=== PATIENT | female | born 1960 | race Caucasian/White ===

== ENCOUNTER 2016-11-22 23:20 | Inpatient (IN) ==
--- NOTE | 2016-11-23 00:27 | Emergency Department Note ---
Guilherme Zeng Brittany, am scribing for, and in the presence of, Adrienne Mace DO 00: 09. IRodri Debra, DO, personally performed the services described in this documentation, ascribed by Shirlene Vanegas in my presence, and it is both accurate and complete . Arrival - Arrival Chief Complaint: Chest Pain Stated Complaint: b/p up hr up chest pain ED Nursing Triage Note: pt to triage with c/o increased bp of 149/117, hr of 112 and onset of chest pain and nausea. pt states pain radiates to left shoulder. Mode of Arrival: Ambulatory Limitations: No Limitations Source: Patient - History of Present Illness HPI Narrative: This is s 56 y/o white female,who presents to the ED with c/o chest pain which started at 1999 last night. She localizes the chest pain to the left upper chest area and describes the pain as a sharp stabbing type of pain. She denies a cough but notes nausea and vomiting. She states she took some Benadryl before coming to the ED. Pt has no other complaints/pain in the ED at this time. Pt has a PMHx of HTN and [place]. Pt has had a cardiac cath. Pt denies a family medical Hx. Pt denies a social Hx. Onset (ago): hour(s) (Started at 1999) Consistency: constant Severity: moderate Quality: stabbing, sharp Date of Last Menstrual Period: hyst Allergies/Adverse Reactions: Allergies Allergy/AdvReac Type Severity Reaction Status Date / Time nitroglycerin AdvReac Intermediate HIVES Verified 11/23/16 01:21 Review of System - Review of System 12 point system: reviewed and no additional remarkable complaints except as stated - Review of System Respiratory: Absent: cough Cardiovascular: Present: chest pain (Left sided chest pain ) Gastrointestinal: Present: nausea, vomiting Medical,Surgical,& Family Hx - Medical History Cardio: History of: Hypertension, [place] (3yrs ago) - Surgical History Cardiac Surgeries: Sugical HX of: Cardiac Catheterization - Social History Smoking Status: Never smoker Frequency of Alcohol Use: None Type of Drug Use: None Exam Vital Signs: Vital Signs Temperature 97.8 F 11/22/16 23:25 Pulse Rate 119 H 11/22/16 23:25 Respiratory Rate 18 11/22/16 23:25 Blood Pressure 156/113 11/22/16 23:25 O2 Sat by Pulse Oximetry 99 11/22/16 23:25 - General General appearance: alert, in no apparent distress - Head Head exam: Present: atraumatic, normocephalic, normal inspection - Eye Eye exam: Present: EOMI, other (Pupils are dilated ) - ENT ENT exam: Present: mucous membranes moist - Neck Neck exam: Present: full ROM, trachea midline. Absent: tenderness - Chest Chest inspection: Present: symmetric chest wall rise. Absent: tenderness - Respiratory Respiratory exam: Present: normal lung sounds bilaterally. Absent: respiratory distress - Cardiovascular Cardiovascular exam: Present: regular rate, normal rhythm, normal heart sounds. Absent: murmur, rubs, gallop, clicks, JVD - Abdominal Exam Abdominal exam: Present: soft, normal bowel sounds. Absent: tenderness - Rectal Exam Rectal exam: Present: deferred - Extremities Exam Extremities exam: Present: normal capillary refill. Absent: tenderness, pedal edema - Back Exam Back exam: Present: full ROM. Absent: tenderness, muscle spasm, rashes - Neurological Exam Neurological exam: Present: alert, oriented X3, CN II-XII intact. Absent: motor sensory deficit - Psychiatric Psychiatric exam: Present: normal affect, normal mood. Absent: depressed, agitated, anxious, flat affect - Skin Skin exam: Present: warm, dry, intact, normal color. Absent: rash, cyanosis, diaphoresis Course Course Narrative: spoke with hospitalist who will admit pt for observation for cp. pt is stable at this time Results - Labs CBC & BMP: 11/23/16 00:21 11/23/16 00:21 Lab Results: I have reviewed the patients labs - EKG EKG results: interpreted by AUSTYN, sinus rhythm EKG shows: tachycardia - Diagnostic Findings Procedure: Chest x-ray: image reviewed by me (no acute path) Disposition Clinical Impression: Chest pain, HTN (hypertension) Case discussed with: patient, patient's family Disposition: Still a Patient Condition: Stable Time of Disposition: 01:23
[2016-11-23] MEDS ORDERED: NITROGLYCERIN SL 0.4 MG TABLET SL STA (00:41)
[2016-11-23] MEDS ORDERED: ASPIRIN 325 MG TABLET PO STA (00:41)
[2016-11-23 00:48] LABS: Basophils % 0.3 % (0.0-0.8); Eosinophils # 0.2 10*3/uL (0.0-0.87); Eosinophils % 2.3 % (0.00-10.9); Hematocrit 39.7 VOL% (35.7-47.0); Hemoglobin 13.8 GM/DL (12.0-16.0); Immature Granulocytes % 0.3 %; Immature Granulocytes Absolute 0.02 #; Lymphocytes # 1.8 10*3/uL (1.4-4.0); Lymphocytes % 26.9 % (21.3-54.2); Mean Corpuscular HGB Conc 34.8 GM/DL (32-36); Mean Corpuscular Hemoglobin 31 PG (27-34); Mean Platelet Volume 11.6 FL (9.6-12.0); Monocytes # 0.5 10*3/uL (0.11-0.8); Monocytes % 7.9 % (1.7-12.7); Neutrophils # 4.1 10*3/uL (1.4-7.4); Neutrophils % 62.3 % (38.7-73.9); Platelet Count 188 T/CUMM (130-400); Red Blood Count 4.46 MC/CUMM (3.8-5.5); Red Cell Distribution Width 12.7 % (9.3-17.3); White Blood Count 6.6 T/CUMM (4-12)
[2016-11-23] MEDS ORDERED: NITROGLYCERIN SL 0.4 MG TABLET SL ONE (00:53)
[2016-11-23] MEDS ORDERED: ASPIRIN 325 MG TABLET ONE (00:53)
[2016-11-23 01:02] LABS: INR 0.9; PT Patient Result 9.7 SECS; Partial Thromboplastin Time 25.3 SECS (0-40)
[2016-11-23] MEDS ORDERED: ONDANSETRON 4 MG/2 ML VIAL IV STA (01:03)
[2016-11-23] MEDS ORDERED: MORPHINE 2 MG/1 ML SYRINGE IV STA (01:03)
[2016-11-23] MEDS ORDERED: MORPHINE 2 MG/1 ML SYRINGE ONE (01:04)
[2016-11-23] MEDS ORDERED: ONDANSETRON 4 MG/2 ML VIAL ONE (01:04)
[2016-11-23 01:08] LABS: Alanine Aminotransferase 11 U/L (13-56); Albumin 3.4 G/DL (3.4-5.0); Alkaline Phosphatase 106 U/L (45-117); Aspartate Amino Transferase 12 U/L (0-37); Bilirubin,Total < 0.39 MG/DL (0.2-1.0); Blood Urea Nitrogen 10 MG/DL (7-18); Calcium 9.3 MG/DL (8.5-10.1); Glucose 91 MG/DL (74-106); Osmolality,Calculated 281.1 MOS/KG (273-304); Potassium 3.8 MMOL/L (3.5-5.1); Sodium 142 MMOL/L (136-145); Total Protein 6.9 G/DL (6.4-8.3); Troponin I Only < 0.015 NG/ML (0.00-0.045)
[2016-11-23] MEDS ORDERED: METOPROLOL TARTRATE 5 MG/5 ML VIAL IV STA (01:18)
[2016-11-23] MEDS ORDERED: ENOXAPARIN 60 MG/0.6 ML SYRINGE SUBCUT STA (01:23)
[2016-11-23] MEDS ORDERED: ENOXAPARIN 60 MG/0.6 ML SYRINGE ONE (01:31)
[2016-11-23] MEDS ORDERED: METOPROLOL TARTRATE 5 MG/5 ML VIAL IV ONE (01:31)
--- NOTE | 2016-11-23 01:58 | Hospitalist History & Physical ---
Assessment and Plan - Time spent with patient Time spent with patient: Less than 30 minutes (1) Chest pain Status: Acute Assessment and plan: Monitored bed Serial EKGs and troponins Lipid panel pending ASA daily Patient is allergic to NTG (causes itching) Cardiology consultation Current Visit: Yes (2) HTN (hypertension) Status: Chronic Assessment and plan: Unsure of patient is compliant with home medication regimen Will start Lisinopril and Metoprolol daily as this is part of her daily regimen Current Visit: Yes (3) Anxiety Status: Chronic Current Visit: Yes History of Present Illness Chief complaint: chest pain History of present illness: Called to the ER for Ms. Dorman who is a 56 year old female that presents tonight with increased blood pressure and increased heart rate over the course of today. Patient said the highest BP recorded was 149/120 and the highest HR recorded was 135. She vomited three times this afternoon and then began having left sided chest pain while lying in the bed at 2000 tonight. Patient describes the pain as sharp that radiates to left neck and face with shortness of breath and diaphoresis. She denies any alleviating or aggravating factors. While in the ER, she received a complete cardiac workup that was negative. She received Lovenox 60mg subq, Metoprolol Tartrate 5mg, NTG 0.4mL SL, ASA 325mg, Morphine 2mg IV, and Zofran 4mg IV. She denies chest pain or shortness of breath at this time. Patient's history includes LA in 2013, HTN, anxiety, depression, hysterectomy, and breast reduction. Her digital service engineer was Dr. Nolan but she has not seen him since last year. Last cath was in 2013 along with a stress test and echo. She states she has been compliant with her home medication regimen and denies alcohol or drug use. She does not have a PCP due to her last PCP recently retired. She will be admitted under hospital medicine service to a monitored bed with serial EKGs and troponins, and cardiology consultation. Home medications will be reconciled once confirm. Patient is a full code. Home Medications Medication Instructions Recorded Confirmed Type Aspirin 81 mg PO DAILY 11/23/16 11/23/16 History LORazepam [Lorazepam] 0.5 mg PO TID 11/23/16 11/23/16 History Lisinopril 2.5 mg PO DAILY 11/23/16 11/23/16 History Metoprolol Succinate Xl [Toprol Xl] 50 mg PO DAILY 11/23/16 11/23/16 History Potassium Chloride 10 meq PO DAILY 11/23/16 11/23/16 History cloNIDine HCl [Clonidine HCl] 11/23/16 History Allergies Allergy/AdvReac Type Severity Reaction Status Date / Time pregabalin [From Lyrica] Allergy Intermediate ITCHING Verified 11/23/16 01:25 nitroglycerin AdvReac Intermediate HIVES Verified 11/23/16 01:21 promethazine [From Phenergan] AdvReac Intermediate Hallucinati Verified 01:25 ng Sulfa (Sulfonamide AdvReac Intermediate Vomiting Verified 11/23/16 01:25 Antibiotics) Medical,Surgical,& Family Hx - Medical History Cardio: History of: Hypertension, [place] (3yrs ago) No history of: CHF Psychological: History of: Anxiety Disorders, Depression Neurology: No history of: Cerebrovascular Accident, TIA HEENT: No history of: HEENT Problems Endocrine: No history of: Endocrine Problems Respiratory: No history of: Respiratory Problems Renal: No history of: Renal Problems Genitourinary: No history of: Problems Gastrointestinal: No history of: GI Problems Musculoskeletal: No history of: Musculoskeletal Problems Hematology: No history of: Blood Disorders Reproductive: No history of: Reproductive Problems - Surgical History Cardiac Surgeries: Sugical HX of: Cardiac Catheterization Reproductive Surgeries: Surgical HX of;: Breast Surgery (breast reduction), Hysterectomy - Family History Family History: Reports;: Family Heart Disease (mother, father), Family Stroke ( father), Additional Family History (mother-alzheimers; brother-kidney disease) - Social History Smoking Status: Never smoker Frequency of Alcohol Use: None Type of Drug Use: None Marital Status: Lives With:: Spouse Functional capacity: independent ambulation - Constitutional Constitutional: Absent: chills, fatigue, fever(s), weakness - EENT Eyes: Absent: blurry vision Ears: Absent: decreased hearing Nose, mouth and throat: Absent: dysphagia, epistaxis, headache(s), throat swelling - Cardiovascular Cardiovascular: Present: chest pain at rest, diaphoresis, dyspnea, radiating jaw , neck or arm pain. Absent: chest pain with activity, edema, lightheadedness, palpitations - Respiratory Respiratory: Present: dyspnea. Absent: cough - Gastrointestinal Gastrointestinal: Present: nausea, vomiting. Absent: abdominal pain, constipation, diarrhea - Genitourinary Genitourinary: Absent: difficulty urinating, dysuria - Musculoskeletal Musculoskeletal: Absent: arthralgias, back pain - Neurological Neurological: Absent: abnormal gait, confusion, frequent falls - Psychiatric Psychiatric: Present: anxiety, depression - Endocrine Endocrine: Absent: cold intolerance, heat intolerance - Hematologic/Lymphatic Hematologic/Lymphatic: Absent: easy bleeding, easy bruising Exam - Constitutional Vitals: Period Temp Pulse Resp BP Sys/Michael Pulse Ox Last 24 Hr 97.8 F-97.8 F 119-119 18-22 156-156/113-113 99 General appearance: normal weight, no acute distress - Head Head exam: Present: normal inspection, normocephalic - Eye Eye exam: Present: EOMI Pupils: Present: AMERICO, normal accommodation - ENT ENT exam: Present: normal exam - Neck Neck exam: Present: normal inspection - Respiratory Respiratory exam: Present: other (Coarse bilaterally. Respirations even and non- labored with symmetrical rise and fall of chest noted. ) - Cardiovascular Cardiovascular exam: Present: regular rate and rhythm. Absent: diastolic murmur , systolic murmur - GI/Abdominal GI/Abdominal exam: Present: normal bowel sounds, soft. Absent: firm, tenderness - Extremities Exam Extremities exam: Present: normal inspection, normal capillary refill, full ROM. Absent: edema - Back Exam Back exam: Present: normal inspection - Neurological Exam Neurological exam: Present: alert, oriented X3 (Answers all questions appropriately. Makes good eye contact. ) - Psychiatric Psychiatric exam: Present: normal affect, normal mood - Skin Skin exam: Present: normal color, warm, dry, intact Results - Labs CBC & BMP: 11/23/16 00:21 11/23/16 00:21 Lab Results: I have reviewed the past 24 hour labs - EKG EKG results: interpreted by AUSTYN
[2016-11-23] MEDS ORDERED: DOCUSATE SODIUM 100 MG CAPSULE PO PRN (02:40)
[2016-11-23] MEDS: SODIUM CHLORIDE 0.9% 1,000 ML IV SCH ×3 (03:02→17:53)
[2016-11-23 03:38] LABS: Barbiturates Screen,Urine Negative (Negative); Benzodiazepines Screen,Urine Negative (Negative); Cannabinoid Screen,Urine Negative (Negative); Opiate Screen,Urine Positive (Negative); Phencyclidine Screen,Urine Negative (Negative)
[2016-11-23] MEDS: MORPHINE 2 MG/1 ML SYRINGE IV PRN ×4 (04:29→21:29)
[2016-11-23] MEDS: ONDANSETRON 4 MG/2 ML VIAL IV PRN (04:31)
[2016-11-23 05:12] LABS: Free T4 (Free Thyroxine) 0.87 NG/DL (0.76-1.46); Thyroid Stimulating Hormone 3.99 uIU/ml (0.358-3.74)
[2016-11-23 05:23] LABS: Risk Ratio 3.21; VLDL CHOLESTEROL 23.6 MG/DL
--- NOTE | 2016-11-23 08:01 | Order Completion Report ---
See report scanned to EMR
--- NOTE | 2016-11-23 08:04 | XRay Report ---
Portable chest Indication: Chest pain Comparison: Not available Findings: Cardiomediastinal contours are normal. Lungs are clear bilaterally. No acute osseous abnormalities. Visualized upper abdomen demonstrates no acute pathology. Impression: Normal chest PROCEDURE INTERPRETED AT [facility] DEPARTMENT OF RADIOLOGY Final Report Signed by: Favian Pearce MD
[2016-11-23] MEDS ORDERED: LISINOPRIL 20 MG TABLET PO SCH (09:00)
[2016-11-23] MEDS ORDERED: METOPROLOL SUCCINATE XL 50 MG TABLET PO SCH (09:00)
[2016-11-23] MEDS: ALPRAZolam 0.25 MG TABLET PO SCH ×2 (09:44→21:29)
[2016-11-23] MEDS: ASPIRIN EC 81 MG TABLET PO SCH (09:45)
[2016-11-23] MEDS: PANTOPRAZOLE 40 MG TABLET PO SCH (09:45)
--- NOTE | 2016-11-23 14:41 | Order Completion Report ---
See report scanned to EMR
--- NOTE | 2016-11-23 14:41 | Order Completion Report ---
See report scanned to EMR
--- NOTE | 2016-11-23 16:40 | Cardiology Consult Note ---
Assessment and Plan (1) Chest pain Status: Acute Current Visit: Yes (2) HTN (hypertension) Status: Chronic Current Visit: Yes (3) Anxiety Status: Chronic Current Visit: Yes History of Present Illness - Data of Consult Patient: new to practice Consult date: 11/23/16 Requesting Physician: Daniel Pineda - Consult Narrative Reason for consult: Hypertension, chest pain History of present illness: Associate Java Developer: Dr. Nolan, she is requesting to switch to Nathan The patient is a 56-year-old white female with a history of "stress-induced" heart attack (apparently no obstructive coronary artery disease) in 2010, hypertension. She presented with complaints of hypertension, tachycardia and chest discomfort associated with the symptoms. Apparently her blood pressure has never been well controlled. She gets hypertensive spikes and tries to take additional medications as needed. Yesterday she had 1 of these spikes, this time associated with significant tachycardia (130s). When this occurred she also experienced some chest discomfort that radiated into her left neck and left arm. This is described as a pressure. There are no other identifiable triggers or alleviators. In general she had not been experiencing any exertional chest discomfort, change in exercise tolerance, paroxysmal nocturnal dyspnea, orthopnea or lower extremity edema. She tells me she has been on a number of different medications but does not necessarily recall having an adverse event from any particular antihypertensive medication. She has not had any recent orthopnea, paroxysmal nocturnal dyspnea, lower extremity edema. She denies any other recent acute illness. She denies recreational drug use, over- the-counter supplements, energy drinks, recent steroid shots or injections. She is not using any cold medications. She denies excessive caffeine consumption. She does not smoke. Impression and plan: -Hypertension: I believe her clonidine regimen is contributing to the yo-yo effect of her hypertension. I am going to try to wean this off of her and give her more long-acting medications. We will optimize her ROSALINDA inhibitor, add Norvasc and decrease the clonidine to try to wean it. I am going to check 24- hour urine metanephrines because of the associated tachycardia. -Chest pain: We will check bilateral arm pressure. I believe this is symptomatic hypertension. We will reevaluate her symptoms once her blood pressure is controlled. We will continue to cycle her cardiac biomarkers. Check an echocardiogram. CC: Móniac Otuseso, MD - Home Medications and Allergies Home Medications: Home Medications Medication Instructions Recorded Confirmed Type Aspirin 81 mg PO DAILY 11/23/16 11/23/16 History LORazepam [Lorazepam] 0.5 mg PO TID PRN 11/23/16 11/23/16 History Lisinopril 2.5 mg PO DAILY 11/23/16 11/23/16 History Metoprolol Succinate Xl [Toprol Xl] 50 mg PO BID 11/23/16 11/23/16 History Potassium Chloride 10 meq PO DAILY 11/23/16 11/23/16 History cloNIDine HCl [Clonidine HCl] 0.2 mg PO BID 11/23/16 11/23/16 History Allergies/Adverse Reactions: Allergies Allergy/AdvReac Type Severity Reaction Status Date / Time pregabalin [From Lyrica] Allergy Intermediate ITCHING Verified 11/23/16 01:25 nitroglycerin AdvReac Intermediate HIVES Verified 11/23/16 01:21 promethazine [From Phenergan] AdvReac Intermediate Hallucinati Verified 01:25 ng Sulfa (Sulfonamide AdvReac Intermediate Vomiting Verified 11/23/16 01:25 Antibiotics) 12 point system: reviewed and no additional remarkable complaints except as stated Medical,Surgical,& Family Hx - Medical History Cardio: History of: Hypertension, [place] (3yrs ago) No history of: CHF Psychological: History of: Anxiety Disorders, Depression Neurology: No history of: Cerebrovascular Accident, TIA HEENT: No history of: HEENT Problems Endocrine: No history of: Endocrine Problems Respiratory: No history of: Respiratory Problems Renal: No history of: Renal Problems Genitourinary: No history of: Problems Gastrointestinal: No history of: GI Problems Musculoskeletal: No history of: Musculoskeletal Problems Hematology: No history of: Blood Disorders Reproductive: No history of: Reproductive Problems - Surgical History Cardiac Surgeries: Sugical HX of: Cardiac Catheterization Reproductive Surgeries: Surgical HX of;: Breast Surgery (breast reduction), Hysterectomy - Family History Family History: Reports;: Family Heart Disease (mother, father), Family Stroke ( father), Additional Family History (mother-alzheimers; brother-kidney disease) - Social History Smoking Status: Never smoker Frequency of Alcohol Use: None Type of Drug Use: None Marital Status: Lives With:: Spouse Functional capacity: independent ambulation Physical Examination Vital Signs Temp Pulse Resp BP Pulse Ox 97.8 F 119 H 18 156/113 99 11/22/16 23:25 11/22/16 23:25 11/22/16 23:25 11/22/16 23:25 11/22/16 23:25 Exam: General appearance: normal weight, no acute distress - Head Head exam: Present: normal inspection, normocephalic, atraumatic. Absent: hematoma, laceration - Eye Eye exam: Present: EOMI. Absent: conjunctival injection, nystagmus, periorbital swelling, scleral icterus, laceration to eyelids Pupils: Present: PERRL. Absent: constricted, dilated, fixed, irregular, unequal - ENT ENT exam: Present: normal exam, normal external ear exam - Neck Neck exam: Present: normal inspection. Absent: lymphadenopathy, meningismus, tenderness, thyromegaly - Respiratory Respiratory exam: Present: clear to auscultation bilaterally. Absent: accessory muscle use, chest wall tenderness - Cardiovascular Cardiovascular exam: Present: regular rate and rhythm. Absent: carotid bruit, gallop, JVD, rubs - GI/Abdominal GI/Abdominal exam: Present: normal bowel sounds, soft. Absent: distended, firm , guarding, hernia, mass, tenderness, rebound. - Extremities Exam Extremities exam: Present: normal inspection, normal capillary refill. Absent: calf tenderness, edema - Back Exam Back exam: Present: normal inspection. Absent: muscle spasm, vertebral tenderness - Neurological Exam Neurological exam: Present: alert, oriented X3, grossly intact without resting or intention tremor - Psychiatric Psychiatric exam: Present: normal affect, normal mood - Skin Skin exam: Present: normal color, warm, dry, intact. Absent: cyanosis, diaphoretic, rash, urticaria Result/EKG - Labs CBC & BMP: 11/23/16 00:21 11/23/16 00:21 Lab Results: I have reviewed the past 24 hour labs Labs: Laboratory Results - last 24 hr 11/23/16 11/23/16 11/23/16 00:21 00:21 00:21 WBC 6.6 RBC 4.46 Hgb 13.8 Hct 39.7 MCV 89.0 MCH 31 MCHC 34.8 RDW 12.7 Plt Count 188 MPV 11.6 Neut % (Auto) 62.3 Lymph % (Auto) 26.9 [place] % (Auto) 7.9 Eos % (Auto) 2.3 Baso % (Auto) 0.3 Neut # (Auto) 4.1 Lymph # (Auto) 1.8 [place] # (Auto) 0.5 Eos # (Auto) 0.2 Baso # (Auto) 0.0 Immature Gran % 0.3 Nucleated RBC % 0.0 Immature Gran # 0.02 Nucleated RBCs # 0.00 Immature Plt Fraction 0.0 INR 0.9 PT Patient/Control Mix 9.7 D-Dimer, Quantitative Circ Anticoag PTT 25.3 Sodium 142 Potassium 3.8 Chloride 106 Carbon Dioxide 30 Anion Gap 9.8 BUN 10 Creatinine 1.10 H GFR Calculation 56 BUN/Creatinine Ratio 9.00 Glucose 91 Calculated Osmolality 281.1 Calcium 9.3 Total Bilirubin < 0.39 AST 12 ALT 11 L Alkaline Phosphatase 106 Total Creatine Kinase 42 CK-MB (CK-2) < 1.0 Troponin I < 0.015 Total Protein 6.9 Albumin 3.4 Globulin 3.5 Albumin/Globulin Ratio 0.9 L Triglycerides Cholesterol LDL Cholesterol VLDL Cholesterol HDL Cholesterol Heart Disease Risk Ratio Free T4 TSH 3rd Generation Urine Opiates Screen Ur Barbiturates Screen Ur Phencyclidine Scrn U Amphetamine/Methamph U Benzodiazepines Scrn U Cocaine Metab Screen U Cannabinoids Screen 11/23/16 11/23/16 11/23/16 00:21 02:55 03:13 WBC RBC Hgb Hct MCV MCH MCHC RDW Plt Count MPV Neut % (Auto) Lymph % (Auto) [place] % (Auto) Eos % (Auto) Baso % (Auto) Neut # (Auto) Lymph # (Auto) [place] # (Auto) Eos # (Auto) Baso # (Auto) Immature Gran % Nucleated RBC % Immature Gran # Nucleated RBCs # Immature Plt Fraction INR PT Patient/Control Mix D-Dimer, Quantitative <= 0.5 Circ Anticoag PTT Sodium Potassium Chloride Carbon Dioxide Anion Gap BUN Creatinine GFR Calculation BUN/Creatinine Ratio Glucose Calculated Osmolality Calcium Total Bilirubin AST ALT Alkaline Phosphatase Total Creatine Kinase CK-MB (CK-2) Troponin I Total Protein Albumin Globulin Albumin/Globulin Ratio Triglycerides Cholesterol LDL Cholesterol VLDL Cholesterol HDL Cholesterol Heart Disease Risk Ratio Free T4 0.87 TSH 3rd Generation 3.990 H Urine Opiates Screen Positive H Ur Barbiturates Screen Negative Ur Phencyclidine Scrn Negative U Amphetamine/Methamph Negative U Benzodiazepines Scrn Negative U Cocaine Metab Screen Negative U Cannabinoids Screen Negative 11/23/16 11/23/16 11/23/16 03:13 03:13 08:43 WBC RBC Hgb Hct MCV MCH MCHC RDW Plt Count MPV Neut % (Auto) Lymph % (Auto) [place] % (Auto) Eos % (Auto) Baso % (Auto) Neut # (Auto) Lymph # (Auto) [place] # (Auto) Eos # (Auto) Baso # (Auto) Immature Gran % Nucleated RBC % Immature Gran # Nucleated RBCs # Immature Plt Fraction INR PT Patient/Control Mix D-Dimer, Quantitative Circ Anticoag PTT Sodium Potassium Chloride Carbon Dioxide Anion Gap BUN Creatinine GFR Calculation BUN/Creatinine Ratio Glucose Calculated Osmolality Calcium Total Bilirubin AST ALT Alkaline Phosphatase Total Creatine Kinase CK-MB (CK-2) Troponin I < 0.015 < 0.015 Total Protein Albumin Globulin Albumin/Globulin Ratio Triglycerides 118 Cholesterol 212 H LDL Cholesterol 131.0 VLDL Cholesterol 23.6 HDL Cholesterol 66 H Heart Disease Risk Ratio 3.21 Free T4 TSH 3rd Generation Urine Opiates Screen Ur Barbiturates Screen Ur Phencyclidine Scrn U Amphetamine/Methamph U Benzodiazepines Scrn U Cocaine Metab Screen U Cannabinoids Screen - Diagnostic Findings Procedure: Chest x-ray: report reviewed by me - EKG EKG results: interpreted by me, sinus rhythm, no acute changes
--- NOTE | 2016-11-23 16:56 | Order Completion Report ---
See report scanned to EMR
[2016-11-23] MEDS: ENOXAPARIN 40 MG/0.4 ML SYRINGE SUBCUT SCH (21:29)
[2016-11-23] MEDS: LISINOPRIL 20 MG TABLET PO SCH (21:29)
[2016-11-23] MEDS: METOPROLOL SUCCINATE XL 50 MG TABLET PO SCH (21:35)
[2016-11-24] MEDS: SODIUM CHLORIDE 0.9% 1,000 ML IV SCH ×5 (01:55→22:34)
[2016-11-24] MEDS: ASPIRIN EC 81 MG TABLET PO SCH (08:26)
[2016-11-24] MEDS: amLODIPine 5 MG TABLET PO SCH (08:26)
[2016-11-24] MEDS: cloNIDine 0.1 MG TABLET PO SCH ×2 (08:27→14:45)
[2016-11-24] MEDS: METOPROLOL SUCCINATE XL 50 MG TABLET PO SCH (08:27)
[2016-11-24] MEDS: LISINOPRIL 20 MG TABLET PO SCH ×2 (08:27→20:50)
[2016-11-24] MEDS: ALPRAZolam 0.25 MG TABLET PO SCH ×2 (08:27→20:51)
[2016-11-24] MEDS: PANTOPRAZOLE 40 MG TABLET PO SCH (08:27)
--- NOTE | 2016-11-24 09:32 | Order Completion Report ---
See report scanned to EMR
[2016-11-24 10:19] LABS: Troponin I Only < 0.015 NG/ML (0.00-0.045)
[2016-11-24 10:35] LABS: Basophils % 0.3 % (0.0-0.8); Eosinophils # 0.2 10*3/uL (0.0-0.87); Eosinophils % 3.5 % (0.00-10.9); Hematocrit 40.1 VOL% (35.7-47.0); Hemoglobin 13.3 GM/DL (12.0-16.0); Immature Granulocytes % 0.3 %; Immature Granulocytes Absolute 0.02 #; Lymphocytes # 1.3 10*3/uL (1.4-4.0); Lymphocytes % 21.1 % (21.3-54.2); Mean Corpuscular HGB Conc 33.2 GM/DL (32-36); Mean Corpuscular Hemoglobin 31 PG (27-34); Mean Corpuscular Volume 92.6 FL (87-102); Mean Platelet Volume 11.8 FL (9.6-12.0); Monocytes # 0.3 10*3/uL (0.11-0.8); Monocytes % 5.2 % (1.7-12.7); Neutrophils # 4.3 10*3/uL (1.4-7.4); Neutrophils % 69.6 % (38.7-73.9); Platelet Count 185 T/CUMM (130-400); Red Blood Count 4.33 MC/CUMM (3.8-5.5); Red Cell Distribution Width 13.1 % (9.3-17.3); White Blood Count 6.2 T/CUMM (4-12)
[2016-11-24 10:39] LABS: Calcium 8.3 MG/DL (8.5-10.1); Magnesium 2.4 MG/DL (1.8-2.4); Osmolality,Calculated 278.3 MOS/KG (273-304); Potassium 4.7 MMOL/L (3.5-5.1)
--- NOTE | 2016-11-24 11:34 | Hospitalist Progress Note ---
Assessment and Plan (1) Chest pain Status: Acute Assessment and plan: cardiac enzymes are negative so far. Follow Cardiology's recommendations. Follow Echo Current Visit: Yes (2) HTN (hypertension) Status: Chronic Assessment and plan: Cardiology is adjusting meds, follow response Current Visit: Yes (3) Anxiety Status: Chronic Assessment and plan: stable on meds Current Visit: Yes (4) Elevated TSH Status: Acute Assessment and plan: mildly high, outpt follow up Current Visit: Yes Hospitalist: Subjective Interval history: Patient seen this am. She had a mild fall while trying to get out of the bathroom but didnt head her head on the floor. Her was present in the room. She currently has no chest pain or chest tightness.Cardiology has seen and have made some recommendations. Exam - Constitutional Vitals: Period Temp Pulse Resp BP Sys/Michael Pulse Ox Last 24 Hr 96.5 F-98.3 F 51-69 12-18 93-147/59-84 93-98 General appearance: no acute distress - Head Head exam: Present: normal inspection - Respiratory Respiratory exam: Present: clear to auscultation bilaterally - Cardiovascular Cardiovascular exam: Present: regular rate and rhythm - GI/Abdominal GI/Abdominal exam: Present: normal bowel sounds - Extremities Exam Extremities exam: Present: normal inspection Results - Labs CBC & BMP: 11/24/16 09:18 11/24/16 09:18 Lab Results: I have reviewed the past 24 hour labs
[2016-11-24] MEDS: MORPHINE 2 MG/1 ML SYRINGE IV PRN ×2 (12:21→18:30)
[2016-11-24] MEDS: ONDANSETRON 4 MG/2 ML VIAL IV PRN (12:24)
--- NOTE | 2016-11-24 15:15 | Cardiology Progress Note ---
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 She presented with complaints of hypertension, tachycardia and chest discomfort associated with this. November 25, 2016: She had complaints of labile blood pressure and my goal is to wean her off of her clonidine. At this point her blood pressure is very well controlled. We will continue to work on weaning the clonidine. This morning, apparently when she jm to go to the bathroom she experienced chest pain, and then some kind of dizziness that caused her to "fall". She denies that this was a mechanical issue. She does not really know why she fell. Telemetry was unremarkable, blood sugars and blood pressure were fairly unremarkable although her blood pressure was on the lower side of normal. She is currently not feeling dizzy, denies chest pain or shortness of breath at this time. Impression and plan: -Hypertension: I believe her clonidine regimen is contributing to the yo-yo effect of her hypertension. I am going to try to wean this off of her and give her more long-acting medications. We will optimize her ROSALINDA inhibitor, add Norvasc and decrease the clonidine to try to wean it. I am going to check 24- hour urine metanephrines because of the associated tachycardia. -Chest pain: Initially this seemed to be associated with her hypertension. However, she has had some recurrent episode when she got up to ambulate to the bathroom despite a much lower blood pressure. We will further risk stratify her with stress testing in the morning. Exam (Progress Note) - Constitutional Vitals: Period Temp Pulse Resp BP Sys/Michael Pulse Ox Last 24 Hr 96.5 F-98.3 F 51-69 12-18 93-147/59-84 93-98 Exam: General appearance: normal weight, no acute distress - Head Head exam: Present: normal inspection, normocephalic, atraumatic. Absent: hematoma, laceration - Eye Eye exam: Present: EOMI. Absent: conjunctival injection, nystagmus, periorbital swelling, scleral icterus, laceration to eyelids Pupils: Present: PERRL. Absent: constricted, dilated, fixed, irregular, unequal - ENT ENT exam: Present: normal exam, normal external ear exam - Neck Neck exam: Present: normal inspection. Absent: lymphadenopathy, meningismus, tenderness, thyromegaly - Respiratory Respiratory exam: Present: clear to auscultation bilaterally. Absent: accessory muscle use, chest wall tenderness - Cardiovascular Cardiovascular exam: Present: regular rate and rhythm. Absent: carotid bruit, gallop, JVD, rubs - GI/Abdominal GI/Abdominal exam: Present: normal bowel sounds, soft. Absent: distended, firm , guarding, hernia, mass, tenderness, rebound. - Extremities Exam Extremities exam: Present: normal inspection, normal capillary refill. Absent: calf tenderness, edema - Back Exam Back exam: Present: normal inspection. Absent: muscle spasm, vertebral tenderness - Neurological Exam Neurological exam: Present: alert, oriented X3, grossly intact without resting or intention tremor - Psychiatric Psychiatric exam: Present: normal affect, normal mood - Skin Skin exam: Present: normal color, warm, dry, intact. Absent: cyanosis, diaphoretic, rash, urticaria Result/EKG - Labs CBC & BMP: 11/24/16 09:18 11/24/16 09:18 Lab Results: I have reviewed the past 24 hour labs Labs: Laboratory Results - last 24 hr 11/24/16 11/24/16 11/24/16 08:53 09:18 09:18 WBC 6.2 RBC 4.33 Hgb 13.3 Hct 40.1 MCV 92.6 MCH 31 MCHC 33.2 RDW 13.1 Plt Count 185 MPV 11.8 Neut % (Auto) 69.6 Lymph % (Auto) 21.1 L Wetzel % (Auto) 5.2 Eos % (Auto) 3.5 Baso % (Auto) 0.3 Neut # (Auto) 4.3 Lymph # (Auto) 1.3 L Wetzel # (Auto) 0.3 Eos # (Auto) 0.2 Baso # (Auto) 0.0 Immature Gran % 0.3 Nucleated RBC % 0.0 Immature Gran # 0.02 Nucleated RBCs # 0.00 Immature Plt Fraction 0.0 Sodium 141 Potassium 4.7 Chloride 108 H Carbon Dioxide 28 Anion Gap 9.7 BUN 9 Creatinine 1.00 GFR Calculation 63 BUN/Creatinine Ratio 9.00 Glucose 85 POC Glucose 88 Calculated Osmolality 278.3 Calcium 8.3 L Magnesium 2.4 Total Creatine Kinase CK-MB (CK-2) Troponin I 11/24/16 09:21 WBC RBC Hgb Hct MCV MCH MCHC RDW Plt Count MPV Neut % (Auto) Lymph % (Auto) Wetzel % (Auto) Eos % (Auto) Baso % (Auto) Neut # (Auto) Lymph # (Auto) Wetzel # (Auto) Eos # (Auto) Baso # (Auto) Immature Gran % Nucleated RBC % Immature Gran # Nucleated RBCs # Immature Plt Fraction Sodium Potassium Chloride Carbon Dioxide Anion Gap BUN Creatinine GFR Calculation BUN/Creatinine Ratio Glucose POC Glucose Calculated Osmolality Calcium Magnesium Total Creatine Kinase 32 D CK-MB (CK-2) < 1.0 Troponin I < 0.015 - Diagnostic Findings Procedure: Ultrasound: report reviewed by me
[2016-11-24] MEDS ORDERED: cloNIDine 0.1 MG TABLET PO PRN (15:17)
[2016-11-24 16:23] LABS: Troponin I Only < 0.015 NG/ML (0.00-0.045)
[2016-11-24 17:35] LABS: Apearance,Urine CLEAR (Clear); Bacteria,Urine Occasional /HPF (Few); Bilirubin,Urine Negative (Negative); Blood, Urine Negative (Negative); Glucose,Urine (UA) Negative (Negative); Ketones,Urine Negative (Negative); Nitrite,Urine Negative (Negative); Protein,Urine Negative; RBC,Urine <1 /HPF (0-4); Squamous Epithelial Cell,Urine Occasional /HPF (0-10); Urine Color Colorless (Yellow); Urine Specific Gravity 1.003 (1.001-1.035); Urine Urobilinogen < 2.0 EU/DL (0.2-1.0)
[2016-11-24] MEDS: ENOXAPARIN 40 MG/0.4 ML SYRINGE SUBCUT SCH (20:50)
[2016-11-24 22:30] LABS: Troponin I Only < 0.015 NG/ML (0.00-0.045)
[2016-11-25] MEDS: MORPHINE 2 MG/1 ML SYRINGE IV PRN ×4 (00:06→23:10)
[2016-11-25] MEDS: SODIUM CHLORIDE 0.9% 1,000 ML IV SCH ×5 (07:20→18:50)
[2016-11-25] MEDS: ASPIRIN EC 81 MG TABLET PO SCH (09:16)
[2016-11-25] MEDS: PANTOPRAZOLE 40 MG TABLET PO SCH (09:17)
[2016-11-25] MEDS: ALPRAZolam 0.25 MG TABLET PO SCH ×2 (09:17→21:21)
[2016-11-25] MEDS: LISINOPRIL 20 MG TABLET PO SCH ×2 (09:17→21:20)
[2016-11-25] MEDS: amLODIPine 5 MG TABLET PO SCH (09:17)
[2016-11-25] MEDS ORDERED: REGADENOSON 0.4 MG/5 ML SYRINGE IV ONE (09:38)
--- NOTE | 2016-11-25 09:49 | Cardiology Progress Note ---
<Gudelia Banegas - Last Filed: 11/25/16 09:49> Assessment and Plan - Time spent with patient Time spent with patient: Greater than 30 minutes (1) Dizziness Status: Acute Assessment and plan: SEE PLAN OF CARE LISTED BELOW. Current Visit: Yes (2) Status post fall Status: Acute Assessment and plan: SEE PLAN OF CARE LISTED BELOW. Current Visit: Yes (3) Chest pain Status: Acute Assessment and plan: SEE PLAN OF CARE LISTED BELOW. Current Visit: Yes (4) Anxiety Status: Chronic Assessment and plan: SEE PLAN OF CARE LISTED BELOW. Current Visit: Yes (5) HTN (hypertension) Status: Chronic Assessment and plan: SEE PLAN OF CARE LISTED BELOW. 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 She presented with complaints of hypertension, tachycardia and chest discomfort associated with this. November 25, 2016: Patient was seen and examined in nuclear medicine prior to having stress test. She has ruled out for myocardial infarction with negative cardiac biomarkers. Echocardiogram reveals preserved ejection fraction 65%. Grade 1 out of 4 diastolic dysfunction. Mild LVH. Mild MR. Mild TR. Mild pulmonic regurgitation. Blood pressure much better controlled this morning. Attempting to wean patient off clonidine as this may be contributing to her dizziness. She is currently only receiving 0.1 mg p.o. 3 times a day as needed. She has not required any as needed clonidine. She is without compressive chest pain, heaviness or tightness. Denies shortness of breath. She is to undergo cardiac stress test today. Currently n.p.o. Further recommendations to follow after stress test has been reviewed. Further plan and addendum to follow per Dr. Jeong. IMPRESSION AND PLAN: 1. HYPERTENSION: Well controlled this morning. Continue to monitor blood pressure and adjust accordingly. Attempting to wean off of clonidine. 2. CHEST PAIN: Initially this seemed to be associated with her hypertension. Plan to further risk stratify her with stress testing today. Further recommendations to follow after the study has been read. Continue aspirin. 3. HYPERLIPIDEMIA: LDL 130s. I have initiated statin. Repeat lipid panel in 4-6 weeks. 4. DIZZINESS, STATUS POST FALL: Attempting to wean off clonidine as this may be contributing to her dizziness. 5. ANXIETY: Chronic. Management per attending. Exam (Progress Note) - Constitutional Vitals: Period Temp Pulse Resp BP Sys/Michael Pulse Ox Last 24 Hr 96.3 F-98.6 F 62-69 12-18 100-122/63-79 93-96 Exam: General appearance: normal weight, no acute distress - Head Head exam: Present: normal inspection, normocephalic, atraumatic. Absent: hematoma, laceration - Eye Eye exam: Present: EOMI. Absent: conjunctival injection, nystagmus, periorbital swelling, scleral icterus, laceration to eyelids Pupils: Present: PERRL. Absent: constricted, dilated, fixed, irregular, unequal - ENT ENT exam: Present: normal exam, normal external ear exam - Neck Neck exam: Present: normal inspection. Absent: lymphadenopathy, meningismus, tenderness, thyromegaly - Respiratory Respiratory exam: Present: clear to auscultation bilaterally. Absent: accessory muscle use, chest wall tenderness - Cardiovascular Cardiovascular exam: Present: regular rate and rhythm. Absent: carotid bruit, gallop, JVD, rubs - GI/Abdominal GI/Abdominal exam: Present: normal bowel sounds, soft. Absent: distended, firm , guarding, hernia, mass, tenderness, rebound. - Extremities Exam Extremities exam: Present: normal inspection, normal capillary refill. Absent: calf tenderness, edema - Back Exam Back exam: Present: normal inspection. Absent: muscle spasm, vertebral tenderness - Neurological Exam Neurological exam: Present: alert, oriented X3, grossly intact without resting or intention tremor - Psychiatric Psychiatric exam: Present: normal affect, normal mood - Skin Skin exam: Present: normal color, warm, dry, intact. Absent: cyanosis, diaphoretic, rash, urticaria Result/EKG - Labs CBC & BMP: 11/24/16 09:18 11/24/16 09:18 Lab Results: I have reviewed the past 24 hour labs Labs: Laboratory Results - last 24 hr 11/24/16 11/24/16 11/24/16 09:18 09:18 09:21 WBC 6.2 RBC 4.33 Hgb 13.3 Hct 40.1 MCV 92.6 MCH 31 MCHC 33.2 RDW 13.1 Plt Count 185 MPV 11.8 Neut % (Auto) 69.6 Lymph % (Auto) 21.1 L Alexander % (Auto) 5.2 Eos % (Auto) 3.5 Baso % (Auto) 0.3 Neut # (Auto) 4.3 Lymph # (Auto) 1.3 L Alexander # (Auto) 0.3 Eos # (Auto) 0.2 Baso # (Auto) 0.0 Immature Gran % 0.3 Nucleated RBC % 0.0 Immature Gran # 0.02 Nucleated RBCs # 0.00 Immature Plt Fraction 0.0 Sodium 141 Potassium 4.7 Chloride 108 H Carbon Dioxide 28 Anion Gap 9.7 BUN 9 Creatinine 1.00 GFR Calculation 63 BUN/Creatinine Ratio 9.00 Glucose 85 Calculated Osmolality 278.3 Calcium 8.3 L Magnesium 2.4 Total Creatine Kinase 32 D CK-MB (CK-2) < 1.0 Troponin I < 0.015 Urine Color Urine Appearance Urine pH Ur Specific Osprey Urine Protein Urine Glucose (UA) Urine Ketones Urine Blood Urine Nitrate Urine Bilirubin Urine Urobilinogen Urine Leukocytes Urine RBC Ur Squamous Epith Cells Urine Bacteria Ur Culture Indicated? 11/24/16 11/24/16 11/24/16 15:37 17:00 21:33 WBC RBC Hgb Hct MCV MCH MCHC RDW Plt Count MPV Neut % (Auto) Lymph % (Auto) Alexander % (Auto) Eos % (Auto) Baso % (Auto) Neut # (Auto) Lymph # (Auto) Alexander # (Auto) Eos # (Auto) Baso # (Auto) Immature Gran % Nucleated RBC % Immature Gran # Nucleated RBCs # Immature Plt Fraction Sodium Potassium Chloride Carbon Dioxide Anion Gap BUN Creatinine GFR Calculation BUN/Creatinine Ratio Glucose Calculated Osmolality Calcium Magnesium Total Creatine Kinase 27 29 CK-MB (CK-2) < 1.0 < 1.0 Troponin I < 0.015 < 0.015 Urine Color Colorless Urine Appearance Clear Urine pH 6.0 Ur Specific Osprey 1.003 Urine Protein Negative Urine Glucose (UA) Negative Urine Ketones Negative Urine Blood Negative Urine Nitrate Negative Urine Bilirubin Negative Urine Urobilinogen < 2.0 H Urine Leukocytes Negative Urine RBC <1 Ur Squamous Epith Cells Occasional Urine Bacteria Occasional Ur Culture Indicated? Not indicated <Ismael Jeong - Last Filed: 11/25/16 10:24> Cardiology - PN: Subj Interval history: Cardiology addendum. Patient examined chart reviewed and discussed with nurse Gudelia Banegas RN. EKG benign. Echo shows ejection fraction 65% with grade 1 diastolic dysfunction and mild MR Weaning off clonidine Lexiscan cardiac stress test today Exam (Progress Note) - Constitutional Vitals: Period Temp Pulse Resp BP Sys/Michael Pulse Ox Last 24 Hr 96.3 F-98.6 F 62-69 12-18 100-122/63-79 93-96 Result/EKG - Labs CBC & BMP: 11/24/16 09:18 11/24/16 09:18 Labs: Laboratory Results - last 24 hr 11/24/16 11/24/16 11/24/16 09:18 09:18 09:21 WBC 6.2 RBC 4.33 Hgb 13.3 Hct 40.1 MCV 92.6 MCH 31 MCHC 33.2 RDW 13.1 Plt Count 185 MPV 11.8 Neut % (Auto) 69.6 Lymph % (Auto) 21.1 L Alexander % (Auto) 5.2 Eos % (Auto) 3.5 Baso % (Auto) 0.3 Neut # (Auto) 4.3 Lymph # (Auto) 1.3 L Alexander # (Auto) 0.3 Eos # (Auto) 0.2 Baso # (Auto) 0.0 Immature Gran % 0.3 Nucleated RBC % 0.0 Immature Gran # 0.02 Nucleated RBCs # 0.00 Immature Plt Fraction 0.0 Sodium 141 Potassium 4.7 Chloride 108 H Carbon Dioxide 28 Anion Gap 9.7 BUN 9 Creatinine 1.00 GFR Calculation 63 BUN/Creatinine Ratio 9.00 Glucose 85 Calculated Osmolality 278.3 Calcium 8.3 L Magnesium 2.4 Total Creatine Kinase 32 D CK-MB (CK-2) < 1.0 Troponin I < 0.015 Urine Color Urine Appearance Urine pH Ur Specific Osprey Urine Protein Urine Glucose (UA) Urine Ketones Urine Blood Urine Nitrate Urine Bilirubin Urine Urobilinogen Urine Leukocytes Urine RBC Ur Squamous Epith Cells Urine Bacteria Ur Culture Indicated? 11/24/16 11/24/16 11/24/16 15:37 17:00 21:33 WBC RBC Hgb Hct MCV MCH MCHC RDW Plt Count MPV Neut % (Auto) Lymph % (Auto) Alexander % (Auto) Eos % (Auto) Baso % (Auto) Neut # (Auto) Lymph # (Auto) Alexander # (Auto) Eos # (Auto) Baso # (Auto) Immature Gran % Nucleated RBC % Immature Gran # Nucleated RBCs # Immature Plt Fraction Sodium Potassium Chloride Carbon Dioxide Anion Gap BUN Creatinine GFR Calculation BUN/Creatinine Ratio Glucose Calculated Osmolality Calcium Magnesium Total Creatine Kinase 27 29 CK-MB (CK-2) < 1.0 < 1.0 Troponin I < 0.015 < 0.015 Urine Color Colorless Urine Appearance Clear Urine pH 6.0 Ur Specific Osprey 1.003 Urine Protein Negative Urine Glucose (UA) Negative Urine Ketones Negative Urine Blood Negative Urine Nitrate Negative Urine Bilirubin Negative Urine Urobilinogen < 2.0 H Urine Leukocytes Negative Urine RBC <1 Ur Squamous Epith Cells Occasional Urine Bacteria Occasional Ur Culture Indicated? Not indicated
--- NOTE | 2016-11-25 09:49 | Event Note ---
Patient underwent cardiac stress testing this morning. Initially, patient was tolerating Hi protocol well without complaints of chest pain, heaviness or tightness. Heart rate and blood pressure responded appropriately to exercise. No ST changes noted during this portion of stress test. Without arrhythmia. Patient then became dizzy and gait became unsteady. Treadmill was emergently stopped for patient safety. Without syncope. Patient was safely transition to the chair and Lexiscan protocol was instituted. Patient tolerated Lexiscan well. She is without complaint of chest pain, heaviness or tightness. No arrhythmias noted. No further dizziness or syncope. Overall, stress test was nondiagnostic. Patient now on to final nuclear scan. Dr. Jeong to read, interpret and advise.
--- NOTE | 2016-11-25 10:33 | Hospitalist Progress Note ---
Assessment and Plan (1) Chest pain Status: Acute Assessment and plan: cardiac enzymes are negative so far. Follow Cardiology's recommendations. Follow Echo. She went for a stress test this am, we will follow results. Current Visit: Yes (2) HTN (hypertension) Status: Chronic Assessment and plan: Cardiology is adjusting meds, follow response Current Visit: Yes (3) Anxiety Status: Chronic Assessment and plan: stable on meds Current Visit: Yes (4) Elevated TSH Status: Acute Assessment and plan: mildly high, outpt follow up Current Visit: Yes Hospitalist: Subjective Interval history: Patient went for a stress test this am and result is pending.She is currently complaining of some chest pain. Exam - Constitutional Vitals: Period Temp Pulse Resp BP Sys/Michael Pulse Ox Last 24 Hr 96.3 F-98.6 F 62-69 12-18 100-122/63-79 93-96 General appearance: no acute distress - Head Head exam: Present: normal inspection - Respiratory Respiratory exam: Present: clear to auscultation bilaterally - GI/Abdominal GI/Abdominal exam: Present: normal bowel sounds - Extremities Exam Extremities exam: Present: normal inspection - Neurological Exam Neurological exam: Present: alert, oriented X3 Results - Labs CBC & BMP: 11/24/16 09:18 11/24/16 09:18 Lab Results: I have reviewed the past 24 hour labs
[2016-11-25] MEDS: traZODone 50 MG TABLET PO PRN (21:20)
[2016-11-25] MEDS: ENOXAPARIN 40 MG/0.4 ML SYRINGE SUBCUT SCH (21:20)
[2016-11-25] MEDS: ATORVASTATIN 20 MG TABLET PO SCH (21:20)
[2016-11-25] MEDS: METOPROLOL SUCCINATE XL 50 MG TABLET PO SCH (21:21)
[2016-11-26] MEDS: SODIUM CHLORIDE 0.9% 1,000 ML IV SCH ×3 (01:54→18:46)
[2016-11-26 03:51] LABS: Basophils % 0.2 % (0.0-0.8); Eosinophils # 0.2 10*3/uL (0.0-0.87); Eosinophils % 5.1 % (0.00-10.9); Hematocrit 33.7 VOL% (35.7-47.0); Hemoglobin 11.4 GM/DL (12.0-16.0); Lymphocytes # 1.7 10*3/uL (1.4-4.0); Lymphocytes % 39.9 % (21.3-54.2); Mean Corpuscular HGB Conc 33.8 GM/DL (32-36); Mean Corpuscular Hemoglobin 31 PG (27-34); Mean Corpuscular Volume 90.1 FL (87-102); Mean Platelet Volume 10.9 FL (9.6-12.0); Monocytes # 0.4 10*3/uL (0.11-0.8); Monocytes % 8.4 % (1.7-12.7); Neutrophils % 46.4 % (38.7-73.9); Platelet Count 145 T/CUMM (130-400); Red Blood Count 3.74 MC/CUMM (3.8-5.5); Red Cell Distribution Width 12.5 % (9.3-17.3); White Blood Count 4.3 T/CUMM (4-12)
[2016-11-26 04:29] LABS: Calcium 8.5 MG/DL (8.5-10.1); Osmolality,Calculated 282.8 MOS/KG (273-304)
[2016-11-26] MEDS: ONDANSETRON 4 MG/2 ML VIAL IV PRN (08:44)
[2016-11-26] MEDS ORDERED: ACETAMINOPHEN 325 MG TABLET ONE (09:26)
--- NOTE | 2016-11-26 09:27 | Cardiology Progress Note ---
<Gduelia Banegas - Last Filed: 11/26/16 09:01> Assessment and Plan (1) Dizziness Status: Acute Assessment and plan: SEE PLAN OF CARE LISTED BELOW. Current Visit: Yes (2) Status post fall Status: Acute Assessment and plan: SEE PLAN OF CARE LISTED BELOW. Current Visit: Yes (3) Chest pain Status: Acute Assessment and plan: SEE PLAN OF CARE LISTED BELOW. Current Visit: Yes (4) Anxiety Status: Chronic Assessment and plan: SEE PLAN OF CARE LISTED BELOW. Current Visit: Yes (5) HTN (hypertension) Status: Chronic Assessment and plan: SEE PLAN OF CARE LISTED BELOW. 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 She presented with complaints of hypertension, tachycardia and chest discomfort associated with this. She has ruled out for myocardial infarction with negative cardiac biomarkers. Echocardiogram reveals preserved ejection fraction 65%. Grade 1 out of 4 diastolic dysfunction. Mild LVH. Mild MR. Mild TR. Mild pulmonic regurgitation. She underwent nuclear stress test November 25, 2016 which was negative. No evidence of reversible ischemia. November 26, 2016: She continues to be followed for the following stable, chronic conditions: Hypertension, anxiety and hyperlipidemia. She is being followed for more acute conditions to include: Chest pain, shortness of breath and dizziness. Patient underwent nuclear cardiac stress test yesterday which was clinically and electrocardiographically negative, normal Lexiscan cardiac stress test.. Normal perfusion study without evidence of reversible ischemia. EF calculated at 63%. She continues to complain of dizziness. I will add orthostatic vital signs. Discontinue clonidine. She continues to have intermittent complaints of chest pain and nausea. Cardiac etiology has been ruled out. Patient may benefit from GI evaluation. This could most likely be done as an outpatient. I will defer management this to attending. From a cardiac standpoint, patient is stable for discharge home today. Patient can follow up with cardiology on an as-needed basis. Recommend continuation of aspirin, beta-blockade and statin for risk stratification. I will further discuss with Dr. Jeong and await his additional recommendations. REVIEW OF SYSTEMS, NOVEMBER 26, 2016: CARDIOVASCULAR: Confirms intermittent noncardiac chest pain. Denies heart racing/palpitations. GASTROENTEROLOGY: Confirms nausea, vomiting. Intermittent abdominal pain. RESPIRATORY: Denies shortness of breath, dyspnea on exertion, orthopnea IMPRESSION AND PLAN: 1. HYPERTENSION: Well controlled this morning. Continue to monitor blood pressure and adjust accordingly. 2. ATYPICAL CHEST PAIN, NONCARDIAC: Negative stress test. No evidence of reversible ischemia. Preserved EF. Noncardiac chest pain. Patient may benefit from GI evaluation. Defer management of this to attending. Continue aspirin, beta-blockade and statin for risk stratification. 3. HYPERLIPIDEMIA: LDL 130s. I have initiated statin for further risk stratification. Repeat lipid panel in 4-6 weeks. 4. DIZZINESS, STATUS POST FALL: Clonidine has been weaned off. Orthostatic vital signs. 5. ANXIETY: Chronic. Management per attending. This could be very well be contributing to her chest pain as well. 6. ANEMIA - Stable. Monitor daily CBC. Will order stool for occult blood. Defer further workup to attending. Exam (Progress Note) - Constitutional Vitals: Period Temp Pulse Resp BP Sys/Michael Pulse Ox Last 24 Hr 97.6 F-98.9 F 67-81 16-18 114-152/73-91 94-96 Exam: General appearance: normal weight, no acute distress - Head Head exam: Present: normal inspection, normocephalic, atraumatic. Absent: hematoma, laceration - Eye Eye exam: Present: EOMI. Absent: conjunctival injection, nystagmus, periorbital swelling, scleral icterus, laceration to eyelids Pupils: Present: PERRL. Absent: constricted, dilated, fixed, irregular, unequal - ENT ENT exam: Present: normal exam, normal external ear exam - Neck Neck exam: Present: normal inspection. Absent: lymphadenopathy, meningismus, tenderness, thyromegaly - Respiratory Respiratory exam: Present: clear to auscultation bilaterally. Absent: accessory muscle use, chest wall tenderness - Cardiovascular Cardiovascular exam: Present: regular rate and rhythm. Absent: carotid bruit, gallop, JVD, rubs - GI/Abdominal GI/Abdominal exam: Present: normal bowel sounds, soft. Absent: distended, firm , guarding, hernia, mass, tenderness, rebound. - Extremities Exam Extremities exam: Present: normal inspection, normal capillary refill. Absent: calf tenderness, edema - Back Exam Back exam: Present: normal inspection. Absent: muscle spasm, vertebral tenderness - Neurological Exam Neurological exam: Present: alert, oriented X3, grossly intact without resting or intention tremor - Psychiatric Psychiatric exam: Present: normal affect, normal mood - Skin Skin exam: Present: normal color, warm, dry, intact. Absent: cyanosis, diaphoretic, rash, urticaria Result/EKG - Labs CBC & BMP: 11/26/16 03:34 11/26/16 03:34 Lab Results: I have reviewed the past 24 hour labs Labs: Laboratory Results - last 24 hr 11/26/16 11/26/16 03:34 03:34 WBC 4.3 D RBC 3.74 L Hgb 11.4 L Hct 33.7 L MCV 90.1 MCH 31 MCHC 33.8 RDW 12.5 Plt Count 145 D MPV 10.9 Neut % (Auto) 46.4 Lymph % (Auto) 39.9 Heard % (Auto) 8.4 Eos % (Auto) 5.1 Baso % (Auto) 0.2 Neut # (Auto) 2.0 Lymph # (Auto) 1.7 Heard # (Auto) 0.4 Eos # (Auto) 0.2 Baso # (Auto) 0.0 Immature Gran % 0.0 Nucleated RBC % 0.0 Immature Gran # 0.00 Nucleated RBCs # 0.00 Immature Plt Fraction 0.0 Sodium 144 Potassium 4.0 Chloride 109 H Carbon Dioxide 26 Anion Gap 13.0 BUN 6 L Creatinine 0.70 GFR Calculation 98 BUN/Creatinine Ratio 8.00 Glucose 84 Calculated Osmolality 282.8 Calcium 8.5 Magnesium 2.0 <Ismael Jeong - Last Filed: 11/26/16 10:34> Cardiology - PN: Subj Interval history: Cardiology addendum. Patient reassured. Normal exercise cardiac stress test. EF 63% Noncardiac chest pain. Discharge okay with me Exam (Progress Note) - Constitutional Vitals: Period Temp Pulse Resp BP Sys/Michael Pulse Ox Last 24 Hr 97.6 F-98.9 F 67-81 16-18 114-152/73-91 94-96 Result/EKG - Labs CBC & BMP: 11/26/16 03:34 11/26/16 03:34 Labs: Laboratory Results - last 24 hr 11/26/16 11/26/16 03:34 03:34 WBC 4.3 D RBC 3.74 L Hgb 11.4 L Hct 33.7 L MCV 90.1 MCH 31 MCHC 33.8 RDW 12.5 Plt Count 145 D MPV 10.9 Neut % (Auto) 46.4 Lymph % (Auto) 39.9 Heard % (Auto) 8.4 Eos % (Auto) 5.1 Baso % (Auto) 0.2 Neut # (Auto) 2.0 Lymph # (Auto) 1.7 Heard # (Auto) 0.4 Eos # (Auto) 0.2 Baso # (Auto) 0.0 Immature Gran % 0.0 Nucleated RBC % 0.0 Immature Gran # 0.00 Nucleated RBCs # 0.00 Immature Plt Fraction 0.0 Sodium 144 Potassium 4.0 Chloride 109 H Carbon Dioxide 26 Anion Gap 13.0 BUN 6 L Creatinine 0.70 GFR Calculation 98 BUN/Creatinine Ratio 8.00 Glucose 84 Calculated Osmolality 282.8 Calcium 8.5 Magnesium 2.0
[2016-11-26] MEDS: ALPRAZolam 0.25 MG TABLET PO SCH ×2 (09:32→20:36)
[2016-11-26] MEDS: ACETAMINOPHEN 325 MG TABLET PO PRN (09:32)
[2016-11-26] MEDS: amLODIPine 5 MG TABLET PO SCH (09:33)
[2016-11-26] MEDS: METOPROLOL SUCCINATE XL 50 MG TABLET PO SCH ×2 (09:33→20:36)
[2016-11-26] MEDS: LISINOPRIL 20 MG TABLET PO SCH ×2 (09:33→20:36)
[2016-11-26] MEDS: PANTOPRAZOLE 40 MG TABLET PO SCH (09:33)
[2016-11-26] MEDS: ASPIRIN EC 81 MG TABLET PO SCH (09:33)
--- NOTE | 2016-11-26 11:36 | Hospitalist Progress Note ---
Assessment and Plan (1) Chest pain Status: Acute Assessment and plan: cardiac enzymes are negative so far. Follow Cardiology's recommendations. Follow Echo. Stress test was negative. Plan GI to evaluate Current Visit: Yes (2) HTN (hypertension) Status: Chronic Assessment and plan: Cardiology is adjusting meds, follow response Current Visit: Yes (3) Anxiety Status: Chronic Assessment and plan: stable on meds Current Visit: Yes (4) Elevated TSH Status: Acute Assessment and plan: mildly high, outpt follow up Current Visit: Yes Hospitalist: Subjective Interval history: Patient seen this am, she was complaining of nausea and headaches. Her stress test was normal. Cardiology feels she will benefit from GI's evaluation. Exam - Constitutional Vitals: Period Temp Pulse Resp BP Sys/Michael Pulse Ox Last 24 Hr 97.6 F-98.9 F 67-81 16-18 114-152/73-91 94-96 General appearance: no acute distress - Head Head exam: Present: normal inspection - Respiratory Respiratory exam: Present: clear to auscultation bilaterally - Cardiovascular Cardiovascular exam: Present: regular rate and rhythm - GI/Abdominal GI/Abdominal exam: Present: normal bowel sounds - Extremities Exam Extremities exam: Present: normal inspection Results - Labs CBC & BMP: 11/26/16 03:34 11/26/16 03:34 Lab Results: I have reviewed the past 24 hour labs
--- NOTE | 2016-11-26 12:22 | Gastrointestinal Consult Note ---
Assessment and Plan (1) Atypical chest pain Status: Acute Assessment and plan: 11/26-several month history of recurring chest pain with associated nausea. Worsening over the last several days with episode increase in severity with radiation to arm and neck. Cardiac evaluation is negative at this time for cardiac etiology. Prior endoscopy done at [place] years ago. Obtain records from [facility]. Will consider EGD tomorrow morning to further evaluate. Plan an addendum to followed by Dr. Aly. Current Visit: Yes History of Present Illness Chief complaint: Atypical chest pain History of present illness: Ms. Dorman is a 56 year old female who was admitted to the hospital 3 days ago with complaints of chest pain. Patient has a prior history of hypertension, MN , anxiety. Patient states that she has had episodes of chest pain off and on for the last several months however 3 days ago the pain began suddenly while she was lying in bed. She states the pain was located on left side of her chest and radiated to her arm and face with some shortness of breath and diaphoresis. She states prior to onset of the pain, she did have an episode of nausea and vomiting with denial of coffee-ground emesis or hematemesis. She states that the pain became so severe that she came to emergency room at that time for further evaluation. She has had this pain in the past that she states it occurs randomly. She does recall that at times it is precipitated by eating. She has off-and-on nausea as well associated with this pain. She does have a history of MN in 2013 and underwent heart catheterization by Dr. Nolan at [place]. She states this pain did feel somewhat similar to the pain she experienced at that time. She has been evaluated by cardiology with stress test and at this time is not felt to be of cardiac origin. Patient has had prior endoscopy done at [place]. She denies a history of peptic ulcer disease or gastritis. She has had colon polyp removal in the past. She cannot recall when or the other findings of her endoscopy. Patient does have GERD and states this is not controlled with OTC medications. She denies any dysphagia or odynophagia. She denies any melena hematochezia. Denies any increase in dyspepsia, weight loss, fever or chills. She denies any NSAID use. Home Medications Medication Instructions Recorded Confirmed Type Aspirin 81 mg PO DAILY 11/23/16 11/23/16 History LORazepam [Lorazepam] 0.5 mg PO TID PRN 11/23/16 11/23/16 History Lisinopril 2.5 mg PO DAILY 11/23/16 11/23/16 History Metoprolol Succinate Xl [Toprol Xl] 50 mg PO BID 11/23/16 11/23/16 History Potassium Chloride 10 meq PO DAILY 11/23/16 11/23/16 History cloNIDine HCl [Clonidine HCl] 0.2 mg PO BID 11/23/16 11/23/16 History Allergies Allergy/AdvReac Type Severity Reaction Status Date / Time pregabalin [From Lyrica] Allergy Intermediate ITCHING Verified 11/23/16 01:25 nitroglycerin AdvReac Intermediate HIVES Verified 11/23/16 01:21 promethazine [From Phenergan] AdvReac Intermediate Hallucinati Verified 01:25 ng Sulfa (Sulfonamide AdvReac Intermediate Vomiting Verified 11/23/16 01:25 Antibiotics) Medical,Surgical,& Family Hx - Medical History Cardio: History of: Hypertension, MN (3yrs ago) No history of: CHF Psychological: History of: Anxiety Disorders, Depression Neurology: No history of: Cerebrovascular Accident, TIA HEENT: No history of: HEENT Problems Endocrine: No history of: Endocrine Problems Respiratory: No history of: Respiratory Problems Renal: No history of: Renal Problems Genitourinary: No history of: Problems Gastrointestinal: No history of: GI Problems Musculoskeletal: No history of: Musculoskeletal Problems Hematology: No history of: Blood Disorders Reproductive: No history of: Reproductive Problems - Surgical History Cardiac Surgeries: Sugical HX of: Cardiac Catheterization Reproductive Surgeries: Surgical HX of;: Breast Surgery (breast reduction), Hysterectomy - Family History Family History: Reports;: Family Heart Disease (mother, father), Family Stroke ( father), Additional Family History (mother-alzheimers; brother-kidney disease) - Social History Smoking Status: Never smoker Frequency of Alcohol Use: None Type of Drug Use: None 12 point system: reviewed and no additional remarkable complaints except as stated - Constitutional Constitutional: Present: as per HPI - EENT Eyes: Present: as per HPI Ears: Present: as per HPI Nose, mouth and throat: Present: as per HPI - Cardiovascular Cardiovascular: Present: as per HPI, chest pain at rest, radiating jaw, neck or arm pain - Respiratory Respiratory: Present: as per HPI - Gastrointestinal Gastrointestinal: Present: as per HPI, heartburn, nausea, vomiting - Genitourinary Genitourinary: Present: as per HPI - Musculoskeletal Musculoskeletal: Present: as per HPI - Neurological Neurological: Present: as per HPI - Psychiatric Psychiatric: Present: as per HPI - Endocrine Endocrine: Present: as per HPI - Hematologic/Lymphatic Hematologic/Lymphatic: Present: as per HPI Exam - Constitutional Vitals: Period Temp Pulse Resp BP Sys/Michael Pulse Ox Last 24 Hr 97.6 F-98.9 F 67-81 16-18 114-152/73-92 94-96 General appearance: normal weight, no acute distress - Head Head exam: Present: normal inspection, normocephalic - Eye Eye exam: Present: other (Lids and conjunctivae are unremarkable). Absent: scleral icterus - ENT ENT exam: Present: normal exam, normal oropharynx - Neck Neck exam: Present: normal inspection - Respiratory Respiratory exam: Present: clear to auscultation bilaterally. Absent: rales, rhonchi, wheezes - Cardiovascular Cardiovascular exam: Present: regular rate and rhythm. Absent: diastolic murmur , JVD, systolic murmur - GI/Abdominal GI/Abdominal exam: Present: normal bowel sounds, soft. Absent: ascites, distended, mass, organomegaly, tenderness - Extremities Exam Extremities exam: Present: normal inspection, full ROM - Back Exam Back exam: Present: normal inspection - Neurological Exam Neurological exam: Present: alert, oriented X3 - Psychiatric Psychiatric exam: Present: normal affect, normal mood - Skin Skin exam: Present: normal color, warm, dry Results - Labs CBC & BMP: 11/26/16 03:34 11/26/16 03:34 Lab Results: I have reviewed the past 24 hour labs
--- NOTE | 2016-11-26 13:16 | Order Completion Report ---
See report scanned to EMR
[2016-11-26] MEDS: ATORVASTATIN 20 MG TABLET PO SCH (20:36)
[2016-11-26] MEDS: traZODone 50 MG TABLET PO PRN (20:36)
[2016-11-27 05:05] LABS: Basophils % 0.5 % (0.0-0.8); Eosinophils # 0.2 10*3/uL (0.0-0.87); Eosinophils % 4.4 % (0.00-10.9); Hematocrit 35.6 VOL% (35.7-47.0); Immature Granulocytes % 0.2 %; Immature Granulocytes Absolute 0.01 #; Lymphocytes # 1.2 10*3/uL (1.4-4.0); Lymphocytes % 28.9 % (21.3-54.2); Mean Corpuscular HGB Conc 33.7 GM/DL (32-36); Mean Corpuscular Hemoglobin 30 PG (27-34); Mean Corpuscular Volume 89.4 FL (87-102); Mean Platelet Volume 11.2 FL (9.6-12.0); Monocytes # 0.4 10*3/uL (0.11-0.8); Monocytes % 9.9 % (1.7-12.7); Neutrophils # 2.3 10*3/uL (1.4-7.4); Neutrophils % 56.1 % (38.7-73.9); Platelet Count 161 T/CUMM (130-400); Red Blood Count 3.98 MC/CUMM (3.8-5.5); Red Cell Distribution Width 12.4 % (9.3-17.3); White Blood Count 4.1 T/CUMM (4-12)
[2016-11-27 05:40] LABS: Calcium 8.7 MG/DL (8.5-10.1); Magnesium 1.9 MG/DL (1.8-2.4); Osmolality,Calculated 287.4 MOS/KG (273-304); Potassium 3.9 MMOL/L (3.5-5.1)
--- NOTE | 2016-11-27 08:33 | Cardiology Progress Note ---
<Gudelia Banegas - Last Filed: 11/27/16 08:21> Assessment and Plan (1) Dizziness Status: Acute Assessment and plan: SEE PLAN OF CARE LISTED BELOW. Current Visit: Yes (2) Status post fall Status: Acute Assessment and plan: SEE PLAN OF CARE LISTED BELOW. Current Visit: Yes (3) Chest pain Status: Acute Assessment and plan: SEE PLAN OF CARE LISTED BELOW. Current Visit: Yes (4) Anxiety Status: Chronic Assessment and plan: SEE PLAN OF CARE LISTED BELOW. Current Visit: Yes (5) HTN (hypertension) Status: Chronic Assessment and plan: SEE PLAN OF CARE LISTED BELOW. 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 She presented with complaints of hypertension, tachycardia and chest discomfort associated with this. She has ruled out for myocardial infarction with negative cardiac biomarkers. Echocardiogram reveals preserved ejection fraction 65%. Grade 1 out of 4 diastolic dysfunction. Mild LVH. Mild MR. Mild TR. Mild pulmonic regurgitation. She underwent nuclear stress test November 25, 2016 which was negative. No evidence of reversible ischemia. November 27, 2016: She continues to be followed for the following stable, chronic conditions: Hypertension, anxiety and hyperlipidemia. She is being followed for more acute conditions to include: Noncardiac chest pain, shortness of breath and dizziness. Patient was seen and examined on the telemetry unit this morning. Upon entering the room, she was walking around in no acute distress. Not requiring oxygen. She reports that she continues to have intermittent episodes of chest pain. Cardiac etiology has been ruled out with negative stress test November 25, 2016. She is now undergoing GI evaluation. Plan for EGD this morning. She is n.p.o. She continues to complain of dizziness when she stands up. Orthostatic vital signs reviewed. No orthostasis noted. She does have isolated hypertension. I will increase Norvasc. Monitor blood pressure closely. From a cardiac standpoint, patient is stable for discharge home today. Patient can follow up with cardiology on an as-needed basis. Recommend continuation of aspirin, beta-blockade and statin for risk stratification. I will further discuss with Dr. Jeong and await his additional recommendations. REVIEW OF SYSTEMS, NOVEMBER 27, 2016: CARDIOVASCULAR: Confirms intermittent noncardiac chest pain. Denies heart racing/palpitations. GASTROENTEROLOGY: Confirms nausea, vomiting. Intermittent abdominal pain. RESPIRATORY: Denies shortness of breath, dyspnea on exertion, orthopnea IMPRESSION AND PLAN: 1. HYPERTENSION: Isolated hypertension noted. I will increase Norvasc. Continue to monitor blood pressure closely and adjust medications accordingly. 2. ATYPICAL CHEST PAIN, NONCARDIAC: Negative stress test. No evidence of reversible ischemia. Preserved EF. Noncardiac chest pain. GI has now been consulted. EGD planned for today for evaluation of noncardiac chest pain. Continue aspirin, beta-blockade and statin for risk stratification. 3. HYPERLIPIDEMIA: LDL 130s. Continue lipid-lowering agent. Repeat lipid panel in 4-6 weeks. 4. DIZZINESS, STATUS POST FALL: Clonidine has been weaned off. No evidence of orthostasis per orthostatic vital signs. 5. ANXIETY: Chronic. Management per attending. This could be very well be contributing to her chest pain as well. 6. ANEMIA - Improved, stable. Monitor daily CBC. Stool for occult blood pending. Defer further workup to attending. Exam (Progress Note) - Constitutional Vitals: Period Temp Pulse Resp BP Sys/Michael Pulse Ox Last 24 Hr 98.1 F-99.0 F 69-87 16-20 117-177/72-95 95-97 Exam: General appearance: normal weight, no acute distress - Head Head exam: Present: normal inspection, normocephalic, atraumatic. Absent: hematoma, laceration - Eye Eye exam: Present: EOMI. Absent: conjunctival injection, nystagmus, periorbital swelling, scleral icterus, laceration to eyelids Pupils: Present: PERRL. Absent: constricted, dilated, fixed, irregular, unequal - ENT ENT exam: Present: normal exam, normal external ear exam - Neck Neck exam: Present: normal inspection. Absent: lymphadenopathy, meningismus, tenderness, thyromegaly - Respiratory Respiratory exam: Present: clear to auscultation bilaterally. Absent: accessory muscle use, chest wall tenderness - Cardiovascular Cardiovascular exam: Present: regular rate and rhythm. Absent: carotid bruit, gallop, JVD, rubs - GI/Abdominal GI/Abdominal exam: Present: normal bowel sounds, soft. Absent: distended, firm , guarding, hernia, mass, tenderness, rebound. - Extremities Exam Extremities exam: Present: normal inspection, normal capillary refill. Absent: calf tenderness, edema - Back Exam Back exam: Present: normal inspection. Absent: muscle spasm, vertebral tenderness - Neurological Exam Neurological exam: Present: alert, oriented X3, grossly intact without resting or intention tremor - Psychiatric Psychiatric exam: Present: normal affect, normal mood - Skin Skin exam: Present: normal color, warm, dry, intact. Absent: cyanosis, diaphoretic, rash, urticaria Result/EKG - Labs CBC & BMP: 11/27/16 04:39 11/27/16 04:39 Lab Results: I have reviewed the past 24 hour labs Labs: Laboratory Results - last 24 hr 11/27/16 11/27/16 04:39 04:39 WBC 4.1 RBC 3.98 Hgb 12.0 Hct 35.6 L MCV 89.4 MCH 30 MCHC 33.7 RDW 12.4 Plt Count 161 MPV 11.2 Neut % (Auto) 56.1 Lymph % (Auto) 28.9 [place] % (Auto) 9.9 Eos % (Auto) 4.4 Baso % (Auto) 0.5 Neut # (Auto) 2.3 Lymph # (Auto) 1.2 L [place] # (Auto) 0.4 Eos # (Auto) 0.2 Baso # (Auto) 0.0 Immature Gran % 0.2 Nucleated RBC % 0.0 Immature Gran # 0.01 Nucleated RBCs # 0.00 Immature Plt Fraction 0.0 Sodium 147 H Potassium 3.9 Chloride 111 H Carbon Dioxide 31 Anion Gap 8.9 BUN 5 L Creatinine 0.70 GFR Calculation 99 BUN/Creatinine Ratio 7.00 Glucose 89 Calculated Osmolality 287.4 Calcium 8.7 Magnesium 1.9 <Ismael Jeong - Last Filed: 11/27/16 10:09> Cardiology - PN: Subj Interval history: Cardiology addendum. Patient examined chart reviewed discussed with nurse Gudelia Banegas RN. Normal Exercise cardiac stress test. Ejection fraction 63%. Telemetry has been benign. Plan EGD today Exam (Progress Note) - Constitutional Vitals: Period Temp Pulse Resp BP Sys/Michael Pulse Ox Last 24 Hr 98.1 F-99.1 F 67-79 16-20 117-177/69-109 95-97 Result/EKG - Labs CBC & BMP: 11/27/16 04:39 11/27/16 04:39 Labs: Laboratory Results - last 24 hr 11/27/16 11/27/16 04:39 04:39 WBC 4.1 RBC 3.98 Hgb 12.0 Hct 35.6 L MCV 89.4 MCH 30 MCHC 33.7 RDW 12.4 Plt Count 161 MPV 11.2 Neut % (Auto) 56.1 Lymph % (Auto) 28.9 [place] % (Auto) 9.9 Eos % (Auto) 4.4 Baso % (Auto) 0.5 Neut # (Auto) 2.3 Lymph # (Auto) 1.2 L [place] # (Auto) 0.4 Eos # (Auto) 0.2 Baso # (Auto) 0.0 Immature Gran % 0.2 Nucleated RBC % 0.0 Immature Gran # 0.01 Nucleated RBCs # 0.00 Immature Plt Fraction 0.0 Sodium 147 H Potassium 3.9 Chloride 111 H Carbon Dioxide 31 Anion Gap 8.9 BUN 5 L Creatinine 0.70 GFR Calculation 99 BUN/Creatinine Ratio 7.00 Glucose 89 Calculated Osmolality 287.4 Calcium 8.7 Magnesium 1.9
[2016-11-27] MEDS: SODIUM CHLORIDE 0.9% 1,000 ML IV SCH ×3 (11:23→20:44)
[2016-11-27 11:35] LABS: CATU Collection Duration 24 h; CATU Dopamine Frac 75 mcg/24 h (65-400); CATU Epinephrine Frac <0.8 mcg/24 h (<21); CATU Norepinephrine Frac 3.8 mcg/24 h (15-80); CATU Specimen Volume 1600 mL
--- NOTE | 2016-11-27 13:00 | Hospitalist Progress Note ---
Assessment and Plan (1) Chest pain Status: Acute Assessment and plan: cardiac enzymes are negative so far. Follow Cardiology's recommendations. Follow Echo. Stress test was negative. Plan For EGD today Current Visit: Yes (2) HTN (hypertension) Status: Chronic Assessment and plan: Cardiology is adjusting meds, follow response Current Visit: Yes (3) Anxiety Status: Chronic Assessment and plan: stable on meds Current Visit: Yes (4) Elevated TSH Status: Acute Assessment and plan: mildly high, outpt follow up Current Visit: Yes Hospitalist: Subjective Interval history: Patient was sitting up on chair, she is going for an EGD today.No new complaints. Exam - Constitutional Vitals: Period Temp Pulse Resp BP Sys/Michael Pulse Ox Last 24 Hr 98.2 F-99.1 F 67-87 16-20 117-178/69-109 95-98 General appearance: no acute distress - Head Head exam: Present: normal inspection - Respiratory Respiratory exam: Present: clear to auscultation bilaterally - Cardiovascular Cardiovascular exam: Present: regular rate and rhythm - GI/Abdominal GI/Abdominal exam: Present: normal bowel sounds - Extremities Exam Extremities exam: Present: normal inspection - Neurological Exam Neurological exam: Present: alert, oriented X3 Results - Labs CBC & BMP: 11/27/16 04:39 11/27/16 04:39 Lab Results: I have reviewed the past 24 hour labs
[2016-11-27] MEDS ORDERED: LIDOCAINE 2% 5 ML VIAL ONE (13:58)
[2016-11-27] MEDS ORDERED: PROPOFOL 200 MG/20 ML VIAL IV ONE (13:58)
--- NOTE | 2016-11-27 14:00 | History and Physical Update ---
History and Physical Update - History and Physical H&P was reviewed, the patient examined and there: are no changes in the patients condition since last H&P was completed. - Physical Exam Mental Status: alert and oriented Heart: regular rate and rhythm Lung: clear to auscultation Abdomen: within normal limits Vitals: within normal limits
--- NOTE | 2016-11-27 14:08 | Operative Note ---
Date of procedure: 11/27/16 Pre-op diagnosis: Atypical chest pain, nausea, dysphagia Procedure: Procedure: Esophagogastroduodenoscopy with biopsies of gastric antral ulcers and bougie dilation of esophagus Brief clinical abstract: 56-year-old female was admitted with chest pain which is felt to be noncardiac. She has had off and on chest discomfort with associated nausea and early satiety for the last couple months. She has noted some difficulty swallowing at times also. Indication for procedure: Nausea, noncardiac chest pain, esophageal dysphagia, early satiety Endoscopic findings:[After informed consent was obtained, the patient was placed in the left lateral decubitus position. The gastroscope was inserted in the upper esophagus under direct vision with no resistance encountered. Esophageal mucosa appeared normal down to the squamocolumnar junction. There was a mildly obstructive fibrous appearing stricture at that level with no erosions or ulcerations. Just distal to this was a small 1-2 cm long hiatal hernia. The endoscope was advanced in the stomach which was carefully examined including retroflexed view of the cardia and fundus. Multiple 5-10 mm diameter superficial white based ulcers were noted in the gastric antrum with at least 5 or 6 of these seen. Biopsies were obtained from the margin and base of these for pathologic examination. The pyloric channel, duodenal bulb, second and third portion of the duodenum appeared normal. The endoscope was removed and Bill dilator size 54 Tanz[place] inserted in the upper esophagus and advanced beyond the level of the GE junction with mild resistance encountered. No blood was noted on the dilator afterwards and she had no chest pain. She appeared to tolerate the procedure well. Impression: #1 distal esophageal stricture secondary to GERD-status post bougie dilation #2 small hiatal hernia #3 multiple gastric antral ulcers-? H pylori or nonsteroidal medication related Recommendations: Continue PPI therapy. Advance diet as tolerated and could discharge home from GI standpoint. We will call her early next week for follow- up on pathology findings. Anesthesia: other (tiva) Surgeon / Physician: Raciel Aly Estimated blood loss: minimal Specimens: other (Gastric antral ulcers) Condition: stable Disposition: post procedure unit Results - Labs CBC & BMP: 11/27/16 04:39 11/27/16 04:39 Discharge Plan - Discharge Medications No Action Potassium Chloride 10 meq PO DAILY Lisinopril 2.5 mg PO DAILY LORazepam [Lorazepam] 0.5 mg PO TID PRN PRN Reason: Anxiety cloNIDine HCl [Clonidine HCl] 0.2 mg PO BID Metoprolol Succinate Xl [Toprol Xl] 50 mg PO BID Aspirin 81 mg PO DAILY - Follow Up or Referral - Forms/Instructions
--- NOTE | 2016-11-27 14:21 | Anesthesia Post-Op ---
Anesthesia Post OP - Post Ansesthetic Evaluation Patient seen in post op: Yes Resp: within normal limits CV: within normal limits Mental: within normal limits Temp: within normal limits [id number]: within normal limits Nausea and Vomiting: within normal limits Pain: within normal limits
[2016-11-27 14:44] LABS: Urine Volume 1600 mL
[2016-11-27] MEDS: METOPROLOL SUCCINATE XL 50 MG TABLET PO SCH ×2 (15:04→20:45)
[2016-11-27] MEDS: LISINOPRIL 20 MG TABLET PO SCH ×2 (15:04→20:45)
[2016-11-27] MEDS: ALPRAZolam 0.25 MG TABLET PO SCH ×2 (15:05→20:45)
[2016-11-27] MEDS: amLODIPine 10 MG TABLET PO SCH (15:05)
[2016-11-27] MEDS: ASPIRIN EC 81 MG TABLET PO SCH (15:05)
[2016-11-27] MEDS: PANTOPRAZOLE 40 MG TABLET PO SCH (15:05)
[2016-11-27] MEDS: ACETAMINOPHEN 325 MG TABLET PO PRN (15:10)
[2016-11-27] MEDS: ATORVASTATIN 20 MG TABLET PO SCH (20:45)
[2016-11-27] MEDS: traZODone 50 MG TABLET PO PRN (20:45)
[2016-11-28] MEDS: SODIUM CHLORIDE 0.9% 1,000 ML IV SCH (04:31)
[2016-11-28 04:38] LABS: Basophils % 0.6 % (0.0-0.8); Eosinophils # 0.2 10*3/uL (0.0-0.87); Eosinophils % 3.1 % (0.00-10.9); Hematocrit 39.3 VOL% (35.7-47.0); Hemoglobin 13.6 GM/DL (12.0-16.0); Immature Granulocytes % 0.2 %; Immature Granulocytes Absolute 0.01 #; Lymphocytes % 39.7 % (21.3-54.2); Mean Corpuscular HGB Conc 34.6 GM/DL (32-36); Mean Corpuscular Hemoglobin 31 PG (27-34); Mean Corpuscular Volume 88.3 FL (87-102); Mean Platelet Volume 11.7 FL (9.6-12.0); Monocytes # 0.5 10*3/uL (0.11-0.8); Monocytes % 9.2 % (1.7-12.7); Neutrophils # 2.4 10*3/uL (1.4-7.4); Neutrophils % 47.2 % (38.7-73.9); Platelet Count 186 T/CUMM (130-400); Red Blood Count 4.45 MC/CUMM (3.8-5.5); Red Cell Distribution Width 12.6 % (9.3-17.3); White Blood Count 5.1 T/CUMM (4-12)
[2016-11-28 05:14] LABS: Calcium 8.9 MG/DL (8.5-10.1); Magnesium 1.8 MG/DL (1.8-2.4); Osmolality,Calculated 284.7 MOS/KG (273-304); Potassium 3.4 MMOL/L (3.5-5.1)
[2016-11-28] MEDS: METOPROLOL SUCCINATE XL 50 MG TABLET PO SCH (09:08)
[2016-11-28] MEDS: amLODIPine 10 MG TABLET PO SCH (09:08)
[2016-11-28] MEDS: LISINOPRIL 20 MG TABLET PO SCH (09:08)
[2016-11-28] MEDS: ASPIRIN EC 81 MG TABLET PO SCH (09:08)
[2016-11-28] MEDS: PANTOPRAZOLE 40 MG TABLET PO SCH (09:08)
[2016-11-28] MEDS: ALPRAZolam 0.25 MG TABLET PO SCH (09:08)
[2016-11-28] MEDS ORDERED: POTASSIUM CHLORIDE 20 MEQ TABLET PO ONE (09:27)
--- NOTE | 2016-11-28 09:29 | Gastrointestinal Progress Note ---
Assessment and Plan (1) Atypical chest pain Status: Acute Assessment and plan: 11/28-EGD results noted as below. Pathology still pending. Tolerating diet. Okay to discharge home from GI standpoint. Plan an addendum to follow Dr. Aly. 11/26-several month history of recurring chest pain with associated nausea. Worsening over the last several days with episode increase in severity with radiation to arm and neck. Cardiac evaluation is negative at this time for cardiac etiology. Prior endoscopy done at [place] years ago. Obtain records from [facility]. Will consider EGD tomorrow morning to further evaluate. Plan an addendum to followed by Dr. Aly. Current Visit: Yes Gastroenterology - PN: Subj Interval history: CC: Atypical chest pain Patient is seen awake alert with family at bedside. States she rested well last night. EGD results on yesterday noted show distal esophageal stricture which was post dilation. Also findings of small hiatal hernia and multiple gastric antral ulcers with biopsies pending for H. pylori. Patient states she is eating better and denies any dysphagia at this time. She also denies any abdominal pain, nausea or vomiting. She is tolerating her diet well. H&H is stable at 13/39. Abdomen soft, nontender. ROS: Denies shortness of breath or chest pain Exam (Progress Note) - Constitutional Vitals: Period Temp Pulse Resp BP Sys/Michael Pulse Ox Last 24 Hr 97.8 F-99.0 F 63-87 11-20 102-178/70-109 96-99 General appearance: normal weight, no acute distress - Head Head exam: Present: normal inspection, normocephalic - Eye Eye exam: Present: other (Lids and conjunctive are unremarkable). Absent: scleral icterus - ENT ENT exam: Present: normal exam, normal oropharynx - Neck Neck exam: Present: normal inspection - Respiratory Respiratory exam: Present: clear to auscultation bilaterally. Absent: rales, rhonchi, wheezes - Cardiovascular Cardiovascular exam: Present: regular rate and rhythm. Absent: diastolic murmur , JVD, systolic murmur - GI/Abdominal GI/Abdominal exam: Present: normal bowel sounds, soft. Absent: ascites, distended, mass, organomegaly, tenderness - Extremities Exam Extremities exam: Present: normal inspection, full ROM - Back Exam Back exam: Present: normal inspection - Neurological Exam Neurological exam: Present: alert, oriented X3 - Psychiatric Psychiatric exam: Present: normal affect, normal mood - Skin Skin exam: Present: normal color, warm, dry Results - Labs CBC & BMP: 11/28/16 03:10 11/28/16 03:10 Lab Results: I have reviewed the past 24 hour labs
--- NOTE | 2016-11-28 11:10 | Cardiology Progress Note ---
Jaden Zeng Vanessa RN, am scribing for, and in the presence of, Ismael Jeong MD 11:10. Assessment and Plan - Time spent with patient Time spent with patient: Greater than 30 minutes (1) Atypical chest pain Status: Resolved Assessment and plan: See impression/plan below. Current Visit: Yes (2) Dizziness Status: Resolved Assessment and plan: See impression/plan below. Current Visit: Yes (3) Status post fall Status: Acute Assessment and plan: See impression/plan below. Current Visit: Yes (4) Anxiety Status: Chronic Assessment and plan: See impression/plan below. Current Visit: Yes (5) HTN (hypertension) Status: Chronic Assessment and plan: See impression/plan below. Current Visit: Yes Cardiology - PN: Subj Interval history: Quantitative Consultant: Dr. Jeong -Previously followed by Dr. Nolan Summary: 56-year-old W[place], PMHx hypertension, anxiety, hyperlipidemia. Also has a history of "stress-induced" TX with apparently no obstructive CAD in 2010. Treated by Dr. Nolan. Admitted on 11/26 with complaints of hypertension, tachycardia, and chest discomfort associated with it. Acute coronary syndrome ruled out. Cardiac biomarkers have remained normal. Echo with preserved LVEF 65%, mild diastolic dysfunction, mild MR/TR. Nuclear stress test on 11/25- with no evidence of reversible ischemia. Due to have atypical chest pain, and GI was consulted for evaluation. Diagnostic EGD on 11/[address] Aly showed distal esophageal stricture which is now post dilation. Also showed small hiatal hernia, multiple gastric antral ulcers. Biopsies taken and pending for H. pylori. November 28, 2016: Ms. Hathaway is awake and alert this morning. Family present at bedside. Reports she slept very well last night, and is without complaint today. Denies continued atypical chest pain or tightness. No anginal complaint with exertion. No shortness of breath. She is eating and swallowing without difficulty, and she denies dysphagia, cough, N/V. SBP 110-130 mmHg. Telemetry : SR, HR 60s with no ectopy or dysrhythmia. Mild hypokalemia today, being repleted with PO supplement. Patient is planned for discharge home later today. Follow-up with Dr. Jeong in clinic in 2 weeks with EKG. ROS: -Denies chest pain, tightness, palpitations -Denies dyspnea, cough -Denies abdominal pain, nausea or vomiting. Appetite good Labs reviewed. WBC 5000 Hgb 13.6, HCT 39.3 Sodium 145, chloride 110, CO2 29 Potassium 3.4 Creatinine 0.8 Glucose 90 Cardiology addendum. Patient examined chart reviewed and discussed with nurse Ashley Stanley RN. EEG demonstrated multiple gastric ulcers and a distal esophageal stricture which was dilated. Biopsy pending. Blood pressure 118/74. Plan Agree with discharge BP meds as outlined Protonix 40 mg twice daily Office visit in 2 weeks with EKG Exam (Progress Note) - Constitutional Vitals: Period Temp Pulse Resp BP Sys/Michael Pulse Ox Last 24 Hr 97.8 F-99.0 F 63-87 11-20 102-178/70-109 96-99 Exam: General appearance: normal weight, no acute distress - Head Head exam: Present: normal inspection, normocephalic, atraumatic. Absent: hematoma, laceration - Eye Eye exam: Present: EOMI. Absent: conjunctival injection, nystagmus, periorbital swelling, scleral icterus, laceration to eyelids Pupils: Present: PERRL. Absent: constricted, dilated, fixed, irregular, unequal - ENT ENT exam: Present: normal exam, normal external ear exam - Neck Neck exam: Present: normal inspection. Absent: lymphadenopathy, meningismus, tenderness, thyromegaly - Respiratory Respiratory exam: Present: clear to auscultation bilaterally. Absent: accessory muscle use, chest wall tenderness - Cardiovascular Cardiovascular exam: Present: regular rate and rhythm. Absent: carotid bruit, gallop, JVD, rubs - GI/Abdominal GI/Abdominal exam: Present: normal bowel sounds, soft. Absent: distended, firm , guarding, hernia, mass, tenderness, rebound. - Extremities Exam Extremities exam: Present: normal inspection, normal capillary refill. Absent: calf tenderness, edema - Back Exam Back exam: Present: normal inspection. Absent: muscle spasm, vertebral tenderness - Neurological Exam Neurological exam: Present: alert, oriented X3, grossly intact without resting or intention tremor - Psychiatric Psychiatric exam: Present: normal affect, normal mood - Skin Skin exam: Present: normal color, warm, dry, intact. Absent: cyanosis, diaphoretic, rash, urticaria Result/EKG - Labs CBC & BMP: 11/28/16 03:10 11/28/16 03:10 Lab Results: I have reviewed the past 24 hour labs Labs: Laboratory Results - last 24 hr 11/23/16 11/28/16 11/28/16 17:10 03:10 03:10 WBC 5.1 RBC 4.45 Hgb 13.6 Hct 39.3 MCV 88.3 MCH 31 MCHC 34.6 RDW 12.6 Plt Count 186 MPV 11.7 Neut % (Auto) 47.2 Lymph % (Auto) 39.7 Stanley % (Auto) 9.2 Eos % (Auto) 3.1 Baso % (Auto) 0.6 Neut # (Auto) 2.4 Lymph # (Auto) 2.0 Stanley # (Auto) 0.5 Eos # (Auto) 0.2 Baso # (Auto) 0.0 Immature Gran % 0.2 Nucleated RBC % 0.0 Immature Gran # 0.01 Nucleated RBCs # 0.00 Immature Plt Fraction 0.0 Sodium 145 Potassium 3.4 L Chloride 110 H Carbon Dioxide 29 Anion Gap 9.4 BUN 5 L Creatinine 0.80 GFR Calculation 84 BUN/Creatinine Ratio 6.00 Glucose 91 Calculated Osmolality 284.7 Calcium 8.9 Magnesium 1.8 Ur Collection Duration 24 Ur 24 Hour Volume 1600 Timed Urine Volume 1600 U Vanillylmandelic Acd 1.9 Ur Epinephrine 24 Hr <0.8 U Norepinephrine 24 Hr 3.8 L Ur Dopamine 24 Hr 75 - EKG EKG results: interpreted by me, no acute changes EKG shows: sinus rhythm Specialty Discharge - Follow Up or Referrals Follow up with: Ismael Jeong MD [Physician] - 2 Weeks (Follow-up in clinic in 2 weeks. Will need EKG.) I, Ismael Jeong MD, personally performed the services described in this documentation, ascribed by Ashley Stanley RN in my presence, and it is both accurate and complete .
--- NOTE | 2016-11-28 11:23 | Discharge Summary ---
Hospital Course - Hospital Course Hospital Course: Ms. Dorman is a 56 yr old female patient with a history of hypertension, VA, anxiety depression, hysterectomy, and agrees with the presented to the ED on 11/23 for further evaluation of increased blood pressure and increased heart rate. Patient states that she recorded the blood pressures and heart rates in the highest was 149/120 and 135. Patient reported that she also vomited several times and started experiencing left-sided chest pain. Patient described the pain as sharp with radiation to the left neck and face with associated shortness of breath and diaphoresis. She was admitted to the hospitalist service for further evaluation and treatment. She was placed on a monitored bed , serial EKGs and troponins were drawn, and a cardiology consultation. Patient did experience a fall without injury during stay. Patient was evaluated by cardiology. Cardiac workup was negative. There was suspicion that her clonidine regimen was contributing to her hypertension so medication changes were made. Echo was performed. EF 63%. patient underwent stress test. Stress test was nondiagnostic. Patient continued to have intermittent complaints of chest pain and nausea so GI was consulted. Patient underwent EGD on 11/27. Patient noted to have a history of esophageal stricture secondary to GERD, small hiatal hernia, and multiple gastric antral ulcers. Patient's diet was advanced she was able to tolerate. Her H&H remained stable. Patient is stable for discharge today. She is to follow up with her PCP. GI will call next week with pathology reports. She is to take Protonix 40 mg BID for 6 weeks. Further instructions to follow per Dr. Owusu. Specialty Discharge - Follow Up or Referrals Follow up with: Ismael Jeong MD [Physician] - 2 Weeks (Follow-up in clinic in 2 weeks. Will need EKG.) Discharge Plan - Discharge Medications No Action Potassium Chloride 10 meq PO DAILY Lisinopril 2.5 mg PO DAILY LORazepam [Lorazepam] 0.5 mg PO TID PRN PRN Reason: Anxiety cloNIDine HCl [Clonidine HCl] 0.2 mg PO BID Metoprolol Succinate Xl [Toprol Xl] 50 mg PO BID Aspirin 81 mg PO DAILY - Follow Up or Referral Follow Up: Ismael Jeong MD [Physician] - 2 Weeks (Follow-up in clinic in 2 weeks. Will need EKG.) - Forms/Instructions Exam - Constitutional Vitals: Period Temp Pulse Resp BP Sys/Michael Pulse Ox Last 24 Hr 97.8 F-99.0 F 63-87 11-20 102-178/70-109 96-99 Discharge Results Procedures and tests throughout hospitalization: Pending Orders 11/23/16 17:10 Catecholamine Fract, Ur, 24Hr Routine Metanephrines, Fractionated,24 Routine Vanillylmandelic Acid 24 Hour Routine 11/26/16 09:25 Occult Blood, Stool Routine 11/29/16 04:00 BMP w/ Mg [Basic Metabolic Panel w/Mg] IN AM CBC [Comp Blood Count Auto Diff] IN AM Labs on day of discharge: Labs from last 24 hours 11/28/16 11/28/16 11/23/16 03:10 03:10 17:10 WBC 5.1 RBC 4.45 Hgb 13.6 Hct 39.3 MCV 88.3 MCH 31 MCHC 34.6 RDW 12.6 Plt Count 186 MPV 11.7 Neut % (Auto) 47.2 Lymph % (Auto) 39.7 [place] % (Auto) 9.2 Eos % (Auto) 3.1 Baso % (Auto) 0.6 Neut # (Auto) 2.4 Lymph # (Auto) 2.0 [place] # (Auto) 0.5 Eos # (Auto) 0.2 Baso # (Auto) 0.0 Immature Gran % 0.2 Nucleated RBC % 0.0 Immature Gran # 0.01 Nucleated RBCs # 0.00 Immature Plt Fraction 0.0 Sodium 145 Potassium 3.4 L Chloride 110 H Carbon Dioxide 29 Anion Gap 9.4 BUN 5 L Creatinine 0.80 GFR Calculation 84 BUN/Creatinine Ratio 6.00 Glucose 91 Calculated Osmolality 284.7 Calcium 8.9 Magnesium 1.8 Ur Collection Duration 24 Ur 24 Hour Volume 1600 Timed Urine Volume 1600 U Vanillylmandelic Acd 1.9 Ur Epinephrine 24 Hr <0.8 U Norepinephrine 24 Hr 3.8 L Ur Dopamine 24 Hr 75 DS: Provider Date of admission: 11/23/16 01:19 Primary care physician: . 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
[2016-11-28 11:48] VITALS: BP 132/87
--- NOTE | 2016-11-28 13:24 | Pathology Report from [facility] ---
[facility] ACCESSION # : [id number] PATIENT NAME : Estefany Dorman ORDERING DR : ERICKA AGUILAR MD CLINICAL HX: Atypical CT - Nausea POST-OP DX: Gastric ulcer SPECIMEN INFO: Gastric biopsy GROSS DESCRIPTION: The specimen is received in formalin labeled with the patients name and consists of fragments of pink-patino mucosal tissue measuring 0.7 x 0.4 cm. Submitted in one cassette. DIAGNOSIS FOR ESTEFANY DORMAN: GASTRIC BIOPSIES: Chronic antral gastritis. H. pylori not seen on H&E or special stain with appropriate control. COLLECTED DATE: 11/27/2016 [facility] REPORT DATE: 11/28/2016 ELECTRONICALLY SIGNED BY: Sukhdeep Calderon M.D. 11/28/2016 - 10:10:51 [facility]ITALElad[facility]
[2016-11-29 18:56] LABS: Normetanephrine, U 98 mcg/24 h; Total Metanephrines, U 152 mcg/24 h; Urine Volume 1600 mL
== END 2016-11-28 13:25 | disposition home or self-care (01) | DRG 313 ==
LOC: N.ED 23:20 → N.EDINP 11-23 01:19 → N.TELEN 11-23 01:53
PROVIDERS: ADMIT Internal Medicine; ATTEND Internal Medicine